=== PATIENT | male | born 1935 | race Caucasian/White ===

== ENCOUNTER → 2017-02-19 | Outpatient (CLI) | payer OTHER ==
[~2017-02-19] MED LIST: GLC5 PO; LOSA1TAB38 PO; NIFE60TA57 PO
[2017-02-19 12:21] LABS: BASO % 0.2 %; BASO ABS # 0.01 K/uL (0-0.2); COMPLETE YES; HEMATOCRIT 38.2 % (42-52); IG% 0.2 %; LYMPH % 19.1 %; LYMPH ABS # 0.81 K/uL (1.2-3.4); MEAN CELL VOLUME 94.6 fL (80-100); MEAN CORPUSCULAR HEMOGLOBIN 31.9 pg (25-34); MEAN CORPUSCULAR HGB CONC 33.8 g/dl (32-36); MEAN PLATELET VOLUME 9.3 fL (7.4-10.4); NEUT % 67.5 %; PLATELET COUNT 217 K/uL (130-400); RED BLOOD COUNT 4.04 M/uL (4.7-6.1); WHITE BLOOD COUNT 4.23 K/uL (4.8-10.8)
[2017-02-19 12:53] LABS: CALCIUM 8.3 mg/dl (8.5-10.1)
[2017-02-19 13:12] LABS: ALB/GLOB RATIO 0.9 (0.9-2); ALKALINE PHOSPHATASE 102 U/L (45-117); ALT/SGPT 30 U/L (12-78); AST/SGOT 19 U/L (15-37); BLOOD UREA NITROGEN 27 mg/dl (7-18); BUN/CREATININE RATIO 17.7 (10-20); CARBON DIOXIDE 24 mmol/L (21-32); CHLORIDE 108 mmol/L (98-107); CHOLESTEROL 204 mg/dl (0-200); CHOLESTEROL/HDL RATIO 4.3; GLUCOSE 99 mg/dl (70-99); HDL CHOLESTEROL 48 mg/dl; LDL CHOLESTEROL CALCULATED 127 mg/dl; SODIUM 143 mmol/L (136-145); TRIGLYCERIDES 147 mg/dl (0-150); VERY LOW DENSITY LIPOPROT CALC 29 mg/dl
[2017-02-19 13:26] LABS: ESTIMATED AVERAGE GLUCOSE 137 mg/dl; HA1C FLAG Normal (Normal)
[2017-02-19 13:38] LABS: RATIO 763.2 mcg/mg (0-30.0)
== END | disposition home or self-care (01) ==
LOC: C.LABBFT 07:37
PROVIDERS: ATTEND Internal Medicine
DX: E11.29 Type 2 diabetes mellitus with other diabetic kidney complication (principal)

== ENCOUNTER → 2017-04-09 | Outpatient (CLI) | payer OTHER ==
[2017-04-09 12:34] LABS: URINE APPEARANCE CLOUDY (CLEAR); URINE BILIRUBIN NEG (NEG); URINE COLOR YELLOW; URINE EPITHELIAL CELL AUTO 0-5 /lpf (0-5); URINE NITRITE POS (NEG); URINE SPECIFIC GRAVITY 1.022 (1.000-1.030); UROBILINOGEN NEG (NEG)
[2017-04-09 12:51] LABS: MANUAL MICROSCOPIC REQUIRED? NO; REVIEW REQ? NO
== END | disposition home or self-care (01) ==
LOC: C.LABBFT 09:28
PROVIDERS: ATTEND Physician Assistant Medical
DX: R31.9 Hematuria, unspecified (principal)

== ENCOUNTER → 2017-08-12 | Outpatient (CLI) | payer OTHER ==
[2017-08-12 12:26] LABS: HEMATOCRIT 36.4 % (42-52); MEAN CELL VOLUME 94.1 fL (80-100); MEAN CORPUSCULAR HEMOGLOBIN 33.1 pg (25-34); MEAN CORPUSCULAR HGB CONC 35.2 g/dl (32-36); MEAN PLATELET VOLUME 9.2 fL (7.4-10.4); PLATELET COUNT 252 K/uL (130-400); RED BLOOD COUNT 3.87 M/uL (4.7-6.1); WHITE BLOOD COUNT 5.23 K/uL (4.8-10.8)
[2017-08-12 13:09] LABS: ALT/SGPT 35 U/L (12-78); AST/SGOT 20 U/L (15-37); BLOOD UREA NITROGEN 26 mg/dl (7-18); BUN/CREATININE RATIO 15.6 (10-20); CALCIUM 8.4 mg/dl (8.5-10.1); CARBON DIOXIDE 25 mmol/L (21-32); CHLORIDE 104 mmol/L (98-107); CREATININE 1.65 mg/dl (0.60-1.40); GLUCOSE 126 mg/dl (70-99); POTASSIUM 4.1 mmol/L (3.5-5.1); SODIUM 135 mmol/L (136-145)
[2017-08-12 13:11] LABS: ESTIMATED AVERAGE GLUCOSE 143 mg/dl; HA1C FLAG Normal (Normal)
[2017-08-12 13:15] LABS: ALB/GLOB RATIO 0.7 (0.9-2); ALKALINE PHOSPHATASE 96 U/L (45-117); CHOLESTEROL 194 mg/dl (0-200); CHOLESTEROL/HDL RATIO 4.4; HDL CHOLESTEROL 44 mg/dl; LDL CHOLESTEROL CALCULATED 127 mg/dl; TRIGLYCERIDES 117 mg/dl (0-150); VERY LOW DENSITY LIPOPROT CALC 23 mg/dl
== END | disposition home or self-care (01) ==
LOC: C.LABBFT 10:06
PROVIDERS: ATTEND Internal Medicine
DX: E11.29 Type 2 diabetes mellitus with other diabetic kidney complication (principal)

== ENCOUNTER → 2017-08-24 | Outpatient (CLI) | payer OTHER ==
--- NOTE | 2017-08-24 16:04 | DIAGNOSTIC IMAGING REPORT ---
KUB CLINICAL HISTORY: Constipation. COMPARISON STUDY: CT of the abdomen and pelvis October 27, 2015. FINDINGS: Note is made of cholecystectomy clips. The bowel gas pattern is normal. There is a moderate amount of stool within the colon and rectum. Brachytherapy seeds projecting over the prostate gland are noted. 8 mm calcification within the left abdomen corresponds to a cortical calcification within the left kidney shown on prior CT of October 27, 2015. IMPRESSION: 1. No evidence for a bowel obstruction. 2. Moderate amount of stool within the colon and rectum. Electronically signed by: Nathan Pino M.D. 08/24/2017 4:02 PM Dictated Date/Time: 08/24/2017 4:01 PM
== END | disposition home or self-care (01) ==
LOC: C.RAD1850 15:42
PROVIDERS: ATTEND Internal Medicine
DX: K59.00 Constipation, unspecified (principal)

== ENCOUNTER → 2017-09-04 | Outpatient (CLI) | payer OTHER ==
--- NOTE | 2017-09-04 16:00 | DIAGNOSTIC IMAGING REPORT ---
KUB HISTORY: K59.00 Constipation [id number] COMPARISON: KUB 08/24/2017. FINDINGS: No dilated loops of bowel to suggest an obstruction. Moderate amount well-formed stool seen within the proximal colon, sigmoid colon, and rectum. Multiple radiation seeds seen within the prostate gland. Vascular calcifications are noted. Stable 8 mm cortical calcification within the left kidney. No renal or ureteral calculi. Cholecystectomy clips seen within the right upper quadrant. The lung bases are clear. No pneumoperitoneum or pneumatosis. IMPRESSION: 1. Moderate well-formed stool seen within the colon and rectum, unchanged. 2. No evidence for bowel obstruction. Electronically signed by: Luis Sketlon M.D. 09/04/2017 3:58 PM Dictated Date/Time: 09/04/2017 3:56 PM
== END | disposition home or self-care (01) ==
LOC: C.RAD1850 15:45
PROVIDERS: ATTEND Internal Medicine
DX: K59.00 Constipation, unspecified (principal)

== ENCOUNTER 2019-01-29 08:07 | Inpatient (IN) ==
[2019-01-29] MEDS ORDERED: ACETAMINOPHEN 500 MG TAB PO STA (08:27)
[2019-01-29] MEDS ORDERED: ALBUTEROL 0.083% NEBU SOLN 3 ML VIAL NEB STA (08:27)
[2019-01-29] MEDS ORDERED: HYDROmorphone INJ 0.5 MG/0.5 ML SYR IV PRN (08:27)
[2019-01-29] MEDS ORDERED: ONDANSETRON INJ 2 MG/ML 2 ML VIAL IV STA (08:27)
[2019-01-29 08:47] LABS: Basophils # (auto) 0.01 K/uL (0-0.2); Basophils % (auto) 0.1 %; Eosinophils % (auto) 1.5 %; Hemoglobin 11.1 g/dL (14.0-18.0); Immature Granulocytes # (auto) 0.01 K/uL (0.00-0.02); Immature Granulocytes % (auto) 0.1 %; Lymphocytes % (auto) 19.3 %; Mean Corpuscular Hgb Conc 35.8 g/dL (32-36); Mean Corpuscular Volume 91.2 fL (80-100); Mean Platelet Volume 8.8 fL (7.4-10.4); Monocytes # (auto) 0.57 K/uL (0.11-0.59); Monocytes % (auto) 8.5 %; Neutrophils # (auto) 4.74 K/uL (1.4-6.5); Neutrophils % (auto) 70.5 %; Platelet Count 256 K/uL (130-400); RDW Coefficient of Variation 14.3 % (11.5-14.5); RDW Standard Deviation 47.6 fL (36.4-46.3); White Blood Count 6.73 K/uL (4.8-10.8)
[2019-01-29 09:07] LABS: Alanine Aminotransferase 17 U/L (12-78); Albumin Level 3.2 gm/dl (3.4-5.0); Aspartate Aminotransferase 17 U/L (15-37); BUN Creatinine Ratio 12.9 (10-20); Blood Urea Nitrogen 26 mg/dl (7-18); Calcium 8.5 mg/dl (8.5-10.1); Carbon Dioxide 22 mmol/L (21-32); Chloride 111 mmol/L (98-107); Est GFR (African American) 34.8; Glucose 129 mg/dl (70-99); Potassium 3.7 mmol/L (3.5-5.1); Sodium 143 mmol/L (136-145)
[2019-01-29] MEDS ORDERED: SODIUM CHLORIDE 0.9% 1000ML 500 ML IV ONE (09:09)
[2019-01-29 09:33] LABS: Albumin Globulin Ratio 0.9 (0.9-2); Alkaline Phosphatase 114 U/L (45-117); Bilirubin,Total 1.1 mg/dl (0.2-1); Creatine Kinase 133 U/L (39-308); Creatine Kinase MB 4.2 ng/ml (0.5-3.6); Globulin 3.6 gm/dl (2.5-4.0); Total Protein 6.8 gm/dl (6.4-8.2); Troponin I 0.299 ng/ml (0-0.045)
--- NOTE | 2019-01-29 09:43 | CT Scan Report ---
CT chest wo con CT DOSE: 383.34 mGy.cm HISTORY: Dyspnea Pt c/o left sided chest pain TECHNIQUE: Multiaxial CT images of the chest were performed without contrast. A dose lowering techni que was utilized adhering to the principles of ALARA. COMPARISON: None. FINDINGS: Large bilateral pleural effusions. Prominent pulmonary vasculature consistent with congesti ve heart failure. Atherosclerotic change thoracic aorta. IMPRESSION: 1. Large bilateral pleural effusions. 2. Congestive heart failure. The above report was generated using voice recognition software. It may contain grammatical, syntax or spelling errors. Electronically signed by: Abhishek Cherry M.D. 01/29/2019 9:41 AM
[2019-01-29] MEDS ORDERED: Heparin IV Standard *NO* Bolus IV ONE ×2 (10:33→13:30)
[2019-01-29] MEDS ORDERED: ASPIRIN CHEW 324 MG PO STA (10:33)
[2019-01-29] MEDS ORDERED: FUROSEMIDE 40 MG/4 ML VIAL IV STA (10:48)
[2019-01-29 11:06] LABS: INR 1.1 (0.9-1.1); Partial Thromboplastin Ratio 1.1; Partial Thromboplastin Time 29.9 Seconds (21.0-31.0); Prothrombin Time 11.4 Seconds (9.0-12.0)
[2019-01-29] MEDS ORDERED: HEPARIN 25000 UNIT/500 ML D5W IV ONE (11:12)
[2019-01-29] MEDS ORDERED: FUROSEMIDE 40 MG/4 ML VIAL IV ONE (11:12)
--- NOTE | 2019-01-29 11:13 | XRay Report ---
XR chest 2V routine CLINICAL HISTORY: chf dyspnea COMPARISON STUDY: 01/13/2019 FINDINGS: Unchanging findings of congestive failure versus pulmonary edema. No evidence for pneumotho rax. IMPRESSION: Findings of pulmonary edema and congestive failure unchanged from the prior study of 01/13 The above report was generated using voice recognition software. It may contain grammatical, syntax or spelling errors. Electronically signed by: Ahbishek Cherry M.D. 01/29/2019 11:11 AM
--- NOTE | 2019-01-29 11:39 | History & Physical Report ---
Date of Service January 29, 2019 Assessment & Plan (1) CHF (congestive heart failure): Acute. Systolic versus diastolic. Cardiac echo is pending. Cardiology consultation pending. Hannah catheter has been placed. Administer IV Lasix 40 mg every 12 hours. Present on Admission?: Yes (2) Acute respiratory failure with hypoxemia: Supplemental oxygen to maintain saturation greater than 90%. Treat CHF Present on Admission?: Yes (3) Pleural effusion: Bilateral pleural effusions noted on chest CT scan. PA and left lateral c hest x-ray pending. Consult thoracic surgery. Present on Admission?: Yes (4) Acute NH anterior wall first episode care: Troponin is elevated and EKG is acutely abnormal. Cardiac echo pending. Cardiology consultation has been ordered. He is currently is on a heparin infusion. Metoprolol tartrate has been increased to twice daily dosing. Nifedipine has been discontinued. Continue aspirin therapy. Present on Admission?: Yes (5) DM2 (diabetes mellitus, type 2): Treated with diet at home. Signed scale and some coverage ordered. (6) CKD (chronic kidney disease) stage 3, GFR 30-59 ml/min: Current creatinine 2.0. Will monitor daily renal function in the face of diuresis. History of Present Illness Chief Complaint: Shortness of breath Primary Care Provider: Rk Perera MD 83-year-old male who presents with a several day history of worsening shortness of breath and wheezing. He has a nonproductive cough. Interestingly, he denies chest discomfort back pain or diaphoresis. He is diabetic and his presentation may be altered. Chest CT scan was done on admission due to a recent fall and rib fracture. He has evidence of congestive heart failure with bilateral pleural effusions and is hypoxic on room air. Troponin is also elevated at 0.299 and EKG reveals evidence of recent anterior wall injury as compared to pre vious EKGs. He is a DNR patient and has chronic kidney kidney disease with creatinine 2.0. The ED physician contacted cardiology who recommended initiation of heparin infusion which has been started. Nifedipine will be discontinued and metoprolol tartrate will be increased to twice daily dosing. Hannah catheter has been placed and IV Lasix has been administered. The ED physician already contacted thoracic surgery, Dr. Cintron, who will be consulted but I do not think this is a parapneumonic effusion and the patient does not appear to be ill enough to have an empyema. I do not believe tho racentesis is necessary at this point. Hopefully the pleural effusions will subside with diuresis. Cardiac echo has been ordered. Family is at the bedside and is aware of the situation. He does have acute hypoxic respiratory failure at this point. ABGs are pending. BNP is 17,800. Allergies Allergy/AdvReac Type Severity Reaction Status Date / Time No Known Allergies Allergy Unverified 01/13/19 08:32 Home Medications Home Medications Medication Instructions Recorded Confirmed Type citalopram 20 mg PO DAILY 01/13/19 01/29/19 History metoprolol tartrate 12.5 mg PO DAILY 01/13/19 01/29/19 History nifedipine 60 mg PO DAILY 01/13/19 01/29/19 History oxycodone 5 mg PO Q4H PRN #15 tab 01/13/19 01/29/19 Rx Past Med/Surg History Medical History Type 2 DM with CKD and hypertension (Acute) Temporomandibular joint dysfunction syndrome (Acute) Suicidal ideation (Acute) Stye (Acute) Stroke syndrome (Acute) Psoriasis (Acute) Pityriasis rosea (Acute) Need for influenza vaccination (Acute) Microalbuminuria (Acute) Malignant neoplasm of prostate (Acute) Lumbar radiculopathy (Acute) Hypertension (Acute) Hyperlipidemia (Acute) Gait disorder (Acute) External hemorrhoids (Acute) Depression (Acute) Dementia (Acute) Controlled type 2 diabetes with renal manifestation (Acute) Cognitive changes (Acute) Bradycardia (Acute) Benign colonic polyp (Acute) Anemia (Acute) Accidental medication overdose (Acute) Abnormal weight loss (Acute) Frequent falls Diabetes mellitus (Chronic) Anxiety (Chronic) Surgical History H/O vasectomy (Chronic) Hx of cholecystectomy (Chronic) Family History Other Family history non-contributory Social History Preferred Language: [place]i Communication Ability: Effective 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 Beliefs That Will Affect Care: None marital status: Current Living Situation: Spouse current occupational status: retired Other Information That Helps Us Care for You: No Feels Safe at Home: Yes Safety Concerns: Feels Safe At This Time Smoking Status: Never smoker Do You Dip or Chew Tobacco: No Second Hand Exposure: No Tobacco Cessation Education Requested by Patient: No Hx Alcohol Use: No Hx Substance Use: No Review of Systems Review of Systems: All systems reviewed & are unremarkable except as noted in HPI & below Respiratory: + cough, + dyspnea, + dyspnea on exertion and + wheezing; no hemoptysis and no sputum production Physical Exam Constitutional: WD/WN, vitals as above average body habitus; no acute distress and not ill appearing Eyes: PERRL, conjunctivae normal, anicteric sclerae ENMT: external ear and nose normal, oropharynx normal Neck: trachea midline, no thyromegaly Respiratory: normal respiratory effort and + cough; no retractions and does not use accessory muscles Midline rhonchi. Dullness at both bases. Bilateral and expiratory wheezes Cardiovascular: Rate/Rhythm: regular rhythm Heart Sounds: normal S1 and normal S2 Borderline tachycardia. Grade 2/6 harsh systolic murmur at the left sternal border Gastrointestinal (Abdomen): normal bowel sounds, soft, nontender, no hepatosplenomegaly Musculoskeletal: 1+ pitting edema bilateral lower extremities below the knees which the family states is unchanged and chronic. Skin: no rashes, warm and dry Neurologic: CN's II-XI intact bilaterally and moves all extremities; no focal motor deficits Results & Data Vital Signs (Past 12 Hours) Vital Signs Temp Pulse Pulse Resp BP BP Pulse Ox 01/29/19 11:16 85 19 97/58 L 95 01/29/19 11:06 79 19 94 01/29/19 10:30 89 21 97 01/29/19 10:00 92 H 17 113/67 95 01/29/19 09:41 100 H 21 115/78 91 01/29/19 09:38 101 H 22 01/29/19 09:01 97 H 22 128/81 93 01/29/19 09:00 95 H 23 01/29/19 08:56 85 L 01/29/19 08:50 94 H 24 147/126 H 99 01/29/19 08:46 93 H 27 H 147/126 H 100 01/29/19 08:41 97 H 20 94 01/29/19 08:31 96 H 25 H 92 01/29/19 08:27 96 01/29/19 08:11 36.5 C 96 H 20 140/75 96 Laboratory Results 01/29/19 08:25 01/29/19 08:25 (1) CHF (congestive heart failure) Heart failure chronicity: unspecified Heart failure type: unspecified Qualif ied Code(s): I50.9 - Heart failure, unspecified
[2019-01-29 11:55] LABS: Appearance Urine Clear (Clear); Bilirubin Urine Negative (Negative); Blood Urine Trace (Negative); Color Urine Yellow; Glucose Urine UA Negative (Negative); Ketones Urine Negative (Negative); Leukocyte Esterase Urine Negative (Negative); Nitrite Urine Negative (Negative); Protein Urine 2+ (Negative); Specific Gravity Urine 1.023 (1.000-1.030); Urobilinogen Urine Negative (Negative)
[2019-01-29] MEDS ORDERED: ONDANSETRON INJ 2 MG/ML 2 ML VIAL IV PRN (12:03)
[2019-01-29] MEDS ORDERED: ALUMINUM/MAGNESIUM SUSP 30 ML UDC PO PRN (12:03)
[2019-01-29] MEDS ORDERED: OXYCODONE HCL IR 5 MG TAB (IMMEDIATE RELEASE) PO PRN (12:03)
[2019-01-29] MEDS ORDERED: NITROGLYCERIN SL 0.4 MG/TAB TAB SL PRN (12:03)
--- NOTE | 2019-01-29 12:13 | Emergency Department Note ---
Entered by Emmie Ram acting as a scribe for History of Present Illness General Chief complaint: Illness Stated complaint: FEVER, COUGH, WHEEZING Time Seen by Provider: 01/29/19 08:16 Source: patient History of Present Illness Onset (ago): week(s) 5 Location: chest Pain Consistency: + other (persistent) Maximum Pain Intensity: 5 Quality: + other (cough) Relieved By: not by medication (2 courses of antibiotics) Exacerbated By: + other (breathing) Associated symptoms: + chest pain (pain in broken left rib with breathing) and + shortness of breath The patient is a 83 year old male that is presenting to the Emergency Room with complaints of a persistent cough after he broke a rib on his left side 4-5 weeks ago. The patient reports that his cough is exacerbated by breathing in deeply. He notes pain in his rib cage secondary to coughing and breathing. He states that he has finished two courses of antibiotics for a possible pneumonia without any relief in his symptoms. The patient notes that his symptoms appear to be worsening. He states that he is short of breath but notes that he does not need breathing treatments at his baseline. He denies any other chest pain. Home Medications Home Medications Medication Instructions Recorded Confirmed Type citalopram 20 mg PO DAILY 01/13/19 01/29/19 History metoprolol tartrate 12.5 mg PO DAILY 01/13/19 01/29/19 History nifedipine 60 mg PO DAILY 01/13/19 01/29/19 History oxycodone 5 mg PO Q4H PRN #15 tab 01/13/19 01/29/19 Rx Allergies Allergy/AdvReac Type Severity Reaction Status Date / Time No Known Allergies Allergy Unverified 01/13/19 08:32 Past Med/Surg History Medical History CKD (chronic kidney disease) stage 3, GFR 30-59 ml/min (Chronic) DM2 (diabetes mellitus, type 2) (Chronic) Acute [place] anterior wall first episode care (Acute) Acute respiratory failure with hypoxemia (Acute) CHF (congestive heart failure) (Acute) Pleural effusion (Acute) Type 2 DM with CKD and hypertension (Acute) Temporomandibular joint dysfunction syndrome (Acute) Suicidal ideation (Acute) Stye (Acute) Stroke syndrome (Acute) Psoriasis (Acute) Pityriasis rosea (Acute) Need for influenza vaccination (Acute) Microalbuminuria (Acute) Malignant neoplasm of prostate (Acute) Lumbar radiculopathy (Acute) Hypertension (Acute) Hyperlipidemia (Acute) Gait disorder (Acute) External hemorrhoids (Acute) Depression (Acute) Dementia (Acute) Controlled type 2 diabetes with renal manifestation (Acute) Cognitive changes (Acute) Bradycardia (Acute) Benign colonic polyp (Acute) Anemia (Acute) Accidental medication overdose (Acute) Abnormal weight loss (Acute) Frequent falls Diabetes mellitus (Chronic) Anxiety (Chronic) Surgical History H/O vasectomy (Chronic) Hx of cholecystectomy (Chronic) Family History Other Family history non-contributory Social History Preferred Language: Yoruba Communication Ability: Effective 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 and A total of 10 systems reviewed and were otherwise negative Physical Exam Vital Signs Vital Signs - 24 hr 01/29/19 08:11 01/29/19 08:27 01/29/19 08:31 Temperature 36.5 C Temperature Source Oral Sepsis Recent Fever Within 48 Hours No Sepsis Action Taken by Nursing No Action Required Pulse Rate 96 H 96 H Pulse Rate [Right Apical] Pulse Rate from SpO2 Sensor 97 H Respiratory Rate 20 25 H Respiratory Effort / Characteristics Respiratory Depth Respiratory Pattern Blood Pressure 140/75 Blood Pressure [Left Arm] Blood Pressure Mean 96 Blood Pressure Mean [Left Arm] Pulse Oximetry 96 96 92 Oxygen Delivery Method Room Air Oxygen Flow Rate 01/29/19 08:41 01/29/19 08:46 01/29/19 08:50 Temperature Temperature Source Sepsis Recent Fever Within 48 Hours Sepsis Action Taken by Nursing Pulse Rate 93 H Pulse Rate [Right Apical] 97 H 94 H Pulse Rate from SpO2 Sensor 93 H Respiratory Rate 20 27 H 24 Respiratory Effort / Characteristics Non-Labored Spontaneous Non-Labored Respiratory Depth Normal Respiratory Pattern Blood Pressure 147/126 H Blood Pressure [Left Arm] 147/126 H Blood Pressure Mean 133 Blood Pressure Mean [Left Arm] 133 Pulse Oximetry 94 100 99 Oxygen Delivery Method Room Air Room Air Oxygen Flow Rate 01/29/19 08:56 01/29/19 09:00 01/29/19 09:01 Temperature Temperature Source Sepsis Recent Fever Within 48 Hours Sepsis Action Taken by Nursing Pulse Rate 95 H 97 H Pulse Rate [Right Apical] Pulse Rate from SpO2 Sensor 95 H 97 H Respiratory Rate 23 22 Respiratory Effort / Characteristics Respiratory Depth Respiratory Pattern Blood Pressure 128/81 Blood Pressure [Left Arm] Blood Pressure Mean 96 Blood Pressure Mean [Left Arm] Pulse Oximetry 85 L 93 Oxygen Delivery Method Nasal Cannula Oxygen Flow Rate 0 01/29/19 09:38 01/29/19 09:41 01/29/19 10:00 Temperature Temperature Source Sepsis Recent Fever Within 48 Hours Sepsis Action Taken by Nursing Pulse Rate 101 H 100 H 92 H Pulse Rate [Right Apical] Pulse Rate from SpO2 Sensor 100 H 92 H Respiratory Rate 22 21 17 Respiratory Effort / Characteristics Respiratory Depth Respiratory Pattern Blood Pressure 115/78 113/67 Blood Pressure [Left Arm] Blood Pressure Mean 90 82 Blood Pressure Mean [Left Arm] Pulse Oximetry 91 95 Oxygen Delivery Method Oxygen Flow Rate 01/29/19 10:28 01/29/19 10:30 01/29/19 11:06 Temperature Temperature Source Sepsis Recent Fever Within 48 Hours Sepsis Action Taken by Nursing Pulse Rate 89 79 Pulse Rate [Right Apical] Pulse Rate from SpO2 Sensor 89 78 Respiratory Rate 21 19 Respiratory Effort / Characteristics Spontaneous Accessory Muscle Use SOB on Exertion Respiratory Depth Normal Respiratory Pattern Regular Blood Pressure Blood Pressure [Left Arm] Blood Pressure Mean Blood Pressure Mean [Left Arm] Pulse Oximetry 97 94 Oxygen Delivery Method Room Air Oxygen Flow Rate GENERAL: Awake, alert, well-appearing, in no acute distress HENT: Normocephalic, atraumatic. Oropharynx unremarkable. EYES: Normal conjunctiva. Sclera non-icteric. NECK: Supple. No nuchal rigidity. FROM. No JVD. RESPIRATORY: Diminished breath sounds on left side. CARDIAC: Regular rate, normal rhythm. Extremities warm and well perfused. Pulses equal. ABDOMEN: Soft, non-distended. No tenderness to palpation. No rebound or guarding. No masses. RECTAL: Deferred. MUSCULOSKELETAL: Tender to 8th rib area. The back is symmetrical on inspection without obvious abnormality. There is no CVA tenderness to palpation. No joint edema. LOWER EXTREMITIES: Calves are equal size bilaterally and non-tender. No edema. No discoloration. NEURO: Normal sensorium. No sensory or motor deficits noted. SKIN: No rash or jaundice noted. Course 0817:The patient was evaluated in room B09. A complete history and physical examination was performed. 0940: I discussed the patient�s case with DIMAS Leonard, who will evaluate the patient for further management and care. 0948: I discussed the patient�s case with NIRANJAN Cordova, who recommended the patient be evaluated for further management. He stated that he will see the patient in the morning and that a CT with contrast is not recommended at this time. 0951: Upon reevaluation, the patient is resting comfortably. I discussed laboratory and radiographic results with the patient. He verbalized agreement of the treatment plan. The patient will be evaluated for further management and care. 1020: I discussed the patient's case with NIRANJAN Ariza, who recommended that cardiology be consulted. 1030: I discussed the [facility]'s [facility] who stated the patient is eligible for anti-coagulation. Consultations Consultation #1: I discussed the patient�s case with DIMAS Leonard, who will evaluate the patient for further management and care. Time: 09:40 Consultation #2: I discussed the patient�s case with NIRANJAN Cordova, who recommended the patient be evaluated for further management. He stated that a CT with contrast is not recommended at this time and that he will see the patient in the morning. Time: 09:48 Consultation #3: I discussed the patient's case with NIRANJAN Ariza, who recommended that Cardiology be consulted. Time: 10:20 Additional Consultation(s): 1030: I discussed the patient's case with Dr. Razo, Cardiology [facility], who stated that the patient is eligible for anti- coagulation. Administered Medications Hydromorphone HCl (Dilaudid) 0.25 mg IV Q15M PRN PRN Reason: Pain Stop: 02/12/19 08:26 Last Admin: 01/29/19 08:46 Dose: 0.25 mg Documented by: [id number] Discontinued Medications Acetaminophen (Tylenol) 1,000 mg PO NOW STA Stop: 01/29/19 08:28 Last Admin: 01/29/19 08:46 Dose: 1,000 mg Documented by: [id number] Albuterol (Ventolin 0.083% 2.5mg/3ml) 2.5 mg NEB NOW STA Stop: 01/29/19 08:28 Last Admin: 01/29/19 08:39 Dose: 2.5 mg Documented by: [id number] Aspirin (Aspirin) 324 mg PO NOW STA Stop: 01/29/19 10:34 Last Admin: 01/29/19 10:47 Dose: 324 mg Documented by: [id number] Furosemide (Lasix) Confirm Administered Dose 40 mg IV .STK-MED ONE Stop: 01/29/19 11:13 Last Admin: 01/29/19 11:17 Dose: 40 mg Documented by: [id number] Heparin Sodium/Dextrose () 1 ea IV ONE ONE; Protocol Stop: 01/29/19 10:34 Last Admin: 01/29/19 11:26 Dose: Not Given Documented by: [id number] Heparin Sodium/Dextrose (Heparin Sodium/Dextrose) Confirm Administered Dose 25,000 units IV .STK-MED ONE Stop: 01/29/19 11:13 Last Admin: 01/29/19 11:18 Dose: 1,250 units Documented by: [id number] Cosigned by: [id number] Sodium Chloride (Nss 1000ml) 500 mls @ 999 mls/hr IV .Q31M ONE Stop: 01/29/19 09:39 Last Infusion: 01/29/19 10:03 Dose: 0 mls/hr Documented by: [id number] Admin: 01/29/19 09:18 Dose: 999 mls/hr Documented by: [id number] Ondansetron HCl (Zofran) 4 mg IV NOW STA Stop: 01/29/19 08:28 Last Admin: 01/29/19 08:46 Dose: 4 mg Documented by: [id number] Medical Decision Making Differential Diagnosis Differential diagnosis: Etiologies such as shingles, musculoskeletal pain, pericarditis, myocarditis, cardiac ischemia, pericardial tamponade, pneumonia, pneumothorax, pleural effusion, hemothorax, pleurisy, aortic pathology, pulmonary embolism, intra- abdominal process, as well as others were considered. Medical Records Attestation: I reviewed the patient's medical records. Home Medications Current Medication List: was personally reviewed by me Laboratory Data Attestation: I reviewed the patient's lab results. Result diagrams: 01/29/19 08:25 01/29/19 08:25 Lab Results 01/29/19 01/29/19 01/29/19 Range/Units 08:25 08:25 08:25 WBC 6.73 (4.8-10.8) K/uL RBC 3.40 L (4.7-6.1) M/uL Hgb 11.1 L (14.0-18.0) g/dL Hct 31.0 L (42-52) % MCV 91.2 (80-100) fL MCH 32.6 (25-34) pg MCHC 35.8 (32-36) g/dL RDW Std Deviation 47.6 H (36.4-46.3) fL RDW Coeff of Fabián 14.3 (11.5-14.5) % Plt Count 256 (130-400) K/uL MPV 8.8 (7.4-10.4) fL Immature Gran % (Auto) 0.1 % Neut % (Auto) 70.5 % Lymph % (Auto) 19.3 % [place] % (Auto) 8.5 % Eos % (Auto) 1.5 % Baso % (Auto) 0.1 % Immature Gran # (Auto) 0.01 (0.00-0.02) K/uL Neut # (Auto) 4.74 (1.4-6.5) K/uL Lymph # (Auto) 1.30 (1.2-3.4) K/uL [place] # (Auto) 0.57 (0.11-0.59) K/uL Eos # (Auto) 0.10 (0-0.5) K/uL Baso # (Auto) 0.01 (0-0.2) K/uL PT (9.0-12.0) Seconds INR (0.9-1.1) APTT (21.0-31.0) Seconds PTT Ratio Sodium 143 (136-145) mmol/L Potassium 3.7 (3.5-5.1) mmol/L Chloride 111 H (98-107) mmol/L Carbon Dioxide 22 (21-32) mmol/L Anion Gap 9.0 (3-11) BUN 26 H (7-18) mg/dl Creatinine 2.01 H (0.6-1.4) mg/dl Est Cr Clr Drug Dosing Not Reportable Est GFR ( Amer) 34.8 Est GFR (Non-Af Amer) 30.0 BUN/Creatinine Ratio 12.9 (10-20) Glucose 129 H (70-99) mg/dl Calcium 8.5 (8.5-10.1) mg/dl Total Bilirubin 1.1 H (0.2-1) mg/dl AST 17 (15-37) U/L ALT 17 (12-78) U/L Alkaline Phosphatase 114 (45-117) U/L Total Creatine Kinase 133 (39-308) U/L CK-MB (CK-2) 4.2 H (0.5-3.6) ng/ml CK/CKMB % Calc 3.2 H (0-3.0) Troponin I 0.299 H* (0-0.045) ng/ml NT-Pro-B Natriuret Pep 35512 H (0-1800) pg/ml Total Protein 6.8 (6.4-8.2) gm/dl Albumin 3.2 L (3.4-5.0) gm/dl Globulin 3.6 (2.5-4.0) gm/dl Albumin/Globulin Ratio 0.9 (0.9-2) Lipase 140 (73-393) U/L 01/29/19 Range/Units 10:46 WBC (4.8-10.8) K/uL RBC (4.7-6.1) M/uL Hgb (14.0-18.0) g/dL Hct (42-52) % MCV (80-100) fL MCH (25-34) pg MCHC (32-36) g/dL RDW Std Deviation (36.4-46.3) fL RDW Coeff of Fabián (11.5-14.5) % Plt Count (130-400) K/uL MPV (7.4-10.4) fL Immature Gran % (Auto) % Neut % (Auto) % Lymph % (Auto) % [place] % (Auto) % Eos % (Auto) % Baso % (Auto) % Immature Gran # (Auto) (0.00-0.02) K/uL Neut # (Auto) (1.4-6.5) K/uL Lymph # (Auto) (1.2-3.4) K/uL [place] # (Auto) (0.11-0.59) K/uL Eos # (Auto) (0-0.5) K/uL Baso # (Auto) (0-0.2) K/uL PT 11.4 (9.0-12.0) Seconds INR 1.1 (0.9-1.1) APTT 29.9 (21.0-31.0) Seconds PTT Ratio 1.1 Sodium (136-145) mmol/L Potassium (3.5-5.1) mmol/L Chloride (98-107) mmol/L Carbon Dioxide (21-32) mmol/L Anion Gap (3-11) BUN (7-18) mg/dl Creatinine (0.6-1.4) mg/dl Est Cr Clr Drug Dosing Est GFR ( Amer) Est GFR (Non-Af Amer) BUN/Creatinine Ratio (10-20) Glucose (70-99) mg/dl Calcium (8.5-10.1) mg/dl Total Bilirubin (0.2-1) mg/dl AST (15-37) U/L ALT (12-78) U/L Alkaline Phosphatase (45-117) U/L Total Creatine Kinase (39-308) U/L CK-MB (CK-2) (0.5-3.6) ng/ml CK/CKMB % Calc (0-3.0) Troponin I (0-0.045) ng/ml NT-Pro-B Natriuret Pep (0-1800) pg/ml Total Protein (6.4-8.2) gm/dl Albumin (3.4-5.0) gm/dl Globulin (2.5-4.0) gm/dl Albumin/Globulin Ratio (0.9-2) Lipase (73-393) U/L Imaging Data Radiologist's Impression: Radiology results as stated below per my review and the radiologist's interpretation: CT chest wo con CT DOSE: 383.34 mGy.cm HISTORY: Dyspnea Pt c/o left sided chest pain TECHNIQUE: Multiaxial CT images of the chest were performed without contrast. A dose lowering technique was utilized adhering to the principles of ALARA. COMPARISON: None. FINDINGS: Large bilateral pleural effusions. Prominent pulmonary vasculature consistent with congestive heart failure. Atherosclerotic change thoracic aorta. IMPRESSION: 1. Large bilateral pleural effusions. 2. Congestive heart failure. The above report was generated using voice recognition software. It may contain grammatical, syntax or spelling errors. Electronically signed by: Abhishek Cherry M.D. 01/29/2019 9:41 AM ECG Data Attestation: I personally reviewed and interpreted this ECG as follows: Indication: SOB/dyspnea Rate (beats per minute): 100 Rhythm: normal sinus Findings: + T-wave inversion and + prolonged QT Comparison ECG Date: from (05/14/2016) Change: the following changes noted (T-wave inveresion, prolonged QT) Blood Pressure Blood Pressure Findings: Normal blood pressure MDM Narrative This is an 83-year-old male who presents emergency department complaining of left-sided chest pain. The patient's EKG is significantly changed from previous EKGs and his troponin is also elevated. I did discuss the case with both cardiology as well as thoracic surgery due to the patient's very large pleural effusions. Thoracic surgery is asking that the patient be admitted to the hospitalist service and he will see the patient tomorrow. We did agree to anticoagulate the patient therefore he was placed on a heparin drip. Coagulation profile was also obtained. Patient was given aspirin here in the emergency department. Impression & Plan Hypoxia, CHF (congestive heart failure), Pleural effusion Critical Care Time I have personally spent greater than 30 minutes of critical care time in the direct management of this patient. This includes bedside care, interpretation of diagnostic studies, and testing, discussion with consultants, patient, and family members, and other required patient management activities. This 30 minutes is in excess of all separately billable procedures. Discharge Plan Visit Data Chief Complaint: Illness Stated Complaint: FEVER, COUGH, WHEEZING ED Provider: Quinn Sue Discharge Problem: Hypoxia, CHF (congestive heart failure), Pleural effusion Patient Disposition: Being Evaluated by Hospitalist Discharge Instructions Interventions: ED Discharge Assessment Last Done: 01/29/19 11:45 Discharge Problem: CHF (congestive heart failure) Qualifiers: Heart failure type: unspecified Heart failure chronicity: unspecified Qualified Code(s): I50.9 - Heart failure, unspecified The scribe's documentation has been prepared under my direction and personally r eviewed by me in its entirety. I confirm that the note above accurately reflects all work, treatment, procedures, and medical decision making performed by me.
[2019-01-29] MEDS: METOPROLOL TARTRATE 25 MG TAB PO SCH ×2 (12:21→20:45)
[2019-01-29 12:39] LABS: HCO3 ABG 20 mmol/L (19-24); Oxygen Saturation ABG 95.7 % (90-95); PCO2 ABG 33 mmHg (35-46); PO2 ABG 81 mm/Hg (80-95)
[2019-01-29 12:40] LABS: Allen Test Pos (Pos)
[2019-01-29 12:41] LABS: Amorphous Sediment Urine Present (None Prsent)
[2019-01-29 12:42] LABS: Bacteria Urine 1+ (Negative); RBC Urine 0-4 /hpf (0-4)
[2019-01-29] MEDS: INSULIN ASPART 100 UNITS/ML 3 ML PEN SC SCH ×3 (13:20→20:47)
[2019-01-29] MEDS: Heparin Adult STANDARD Wt-Based Dextrose 5% 25,000 units/500 mL IV SCH (13:32)
[2019-01-29] MEDS: cefTRIAXone SODIUM 1,000 MG in DEXTROSE 5% 50 ML IV SCH (14:01)
--- NOTE | 2019-01-29 19:04 | Cardiology Consultation ---
Date of Consultation January 29, 2019 Assessment & Plan (1) Acute RI anterior wall first episode care: Given the absence of any ongoing chest pain and the subacute nature of his symptoms (past 1-2 months), suspect that he had infarct sometime ago (weeks to months) and has been struggling with chronic congestive heart failure which culminated in his decompensation today with resultant hypoxemia. Since his CK is only 133 his symptoms are subacute, his rising troponin today is most likely a reflection of supply/demand mismatch from his decompensation, rather than an acute event. Given the patient's significant underlying renal disease, in the absence of evidence for an acute event with active ischemia would avoid cardiac catheterization due to the risk of contrast nephropathy resulting in acute renal failure/need for dialysis. Medical management includes IV heparin (for now, until becomes apparent that this is clearly a subacute event), aspirin, diuresis with IV furosemide, beta- blockade (may switch to carvedilol at some point), and initiation of a statin prior to discharge. He may not be an BRITTANY-inhibitor candidate given his renal insufficiency. Cardiology will continue to follow up to assist in titrating his diuretic and monitoring for any ischemic symptoms. (2) Acute respiratory failure with hypoxemia: Secondary to congestive heart failure from apparent subacute anteroapical infarct. (3) CHF (congestive heart failure): Agree with IV diuresis, he is symptomatic early improving quickly but still appears mildly hypervolemic. Follow clinical status, weight, and renal function and titrate diuretic accordingly. (4) Pleural effusion: Secondary to CHF. (5) Type 2 DM with CKD and hypertension: History of Present Illness Attending Physician: Julio Cesar Lemus MD History of Present Illness 83-year-old man with no prior cardiac history is had persistent dyspnea with a cough worse at night over the past month or so. He was treated for presumed pneumonia, but in retrospect a chest x-ray in December did show pleural effusions and some pulmonary vascular congestion. He was admitted today with evidence of congestive heart failure after presenting with dyspnea at rest and hypoxemia. He is responding well to intravenous diuretic, he feels much better currently. Of note, he denies having chest pain at any point. His ECG suggests a recent anterior infarct, cardiac enzymes are elevated and increasing, and his echocardiogram shows a large anteroapical area of akinesis consistent with an infarct. At the time of my evaluation, he was sitting comfortably and had no specific complaints. He was not dyspneic at rest on supplemental oxygen and had no chest pain. Allergies Allergy/AdvReac Type Severity Reaction Status Date / Time No Known Allergies Allergy Unverified 01/13/19 08:32 Home Medications Home Medications Medication Instructions Recorded Confirmed Type citalopram 20 mg PO DAILY 01/13/19 01/29/19 History metoprolol tartrate 12.5 mg PO DAILY 01/13/19 01/29/19 History nifedipine 60 mg PO DAILY 01/13/19 01/29/19 History oxycodone 5 mg PO Q4H PRN #15 tab 01/13/19 01/29/19 Rx Patient History Medical History CKD (chronic kidney disease) stage 3, GFR 30-59 ml/min (Chronic) DM2 (diabetes mellitus, type 2) (Chronic) Acute RI anterior wall first episode care (Acute) Acute respiratory failure with hypoxemia (Acute) CHF (congestive heart failure) (Acute) Pleural effusion (Acute) Type 2 DM with CKD and hypertension (Acute) Temporomandibular joint dysfunction syndrome Suicidal ideation Stye Stroke syndrome Psoriasis Pityriasis rosea Need for influenza vaccination Microalbuminuria Malignant neoplasm of prostate Lumbar radiculopathy Hypertension Hyperlipidemia Gait disorder External hemorrhoids Depression Dementia Controlled type 2 diabetes with renal manifestation Cognitive changes Bradycardia Benign colonic polyp Anemia Accidental medication overdose Abnormal weight loss Frequent falls Diabetes mellitus (Chronic) Anxiety (Chronic) Surgical History H/O vasectomy (Resolved) Hx of cholecystectomy (Resolved) Family History Family history non-contributory Social History Preferred Language: Occitan Communication Ability: Effective Operational Trainer Required: No Beliefs That Will Affect Care: None marital status: Current Living Situation: Spouse current occupational status: retired Other Information That Helps Us Care for You: No Feels Safe at Home: Yes Safety Concerns: Feels Safe At This Time Smoking Status: Never smoker Do You Dip or Chew Tobacco: No Second Hand Exposure: No Tobacco Cessation Education Requested by Patient: No Hx Alcohol Use: No Hx Substance Use: No Review of Systems Constitutional: as per Subjective / HPI, + fatigue and + weakness; no fever and no chills Eyes: no problem reported Ear, Nose, Mouth, Throat: no problem reported Respiratory: as per Subjective / HPI Cardiovascular: as per Subjective / HPI Gastrointestinal: no abdominal pain Musculoskeletal: no problem reported Neurologic: no localized weakness Physical Exam Physical Exam: No distress. Appears fatigued but not acutely distressed. Skin: No unusual lesions or ecchymosis. HEENT: Unremarkable. Neck: Jugular venous pulse [address] the angle of the jaw at 90�, no carotid bruits. Lungs: Dullness at both bases with basilar crackles, apices clear. No wheezing. No accessory muscle use. Cardiac: Regular rhythm with 3/6 right upper sternal border systolic ejection murmur into the carotids and left sternal border/apex, aortic closure sound minimally reduced. No diastolic murmur or distinct gallop. Abdomen: Benign. Extremities: Nontender with 1+ pretibial edema. Intact peripheral pulses. Neurologic: Somewhat subdued affect, nonfocal Results & Data Vital Signs (Past 12 Hours) Vital Signs Temp Pulse Pulse Pulse Resp BP BP 01/29/19 15:19 78 01/29/19 15:05 36.4 C L 85 18 104/59 L 01/29/19 12:03 82 01/29/19 12:00 36.5 C 85 21 99/62 L 01/29/19 11:16 85 19 97/58 L 01/29/19 11:06 79 19 01/29/19 10:30 89 21 01/29/19 10:00 92 H 17 113/67 01/29/19 09:41 100 H 21 115/78 01/29/19 09:38 101 H 22 01/29/19 09:01 97 H 22 128/81 01/29/19 09:00 95 H 23 01/29/19 08:56 01/29/19 08:50 94 H 24 147/126 H 01/29/19 08:46 93 H 27 H 147/126 H 01/29/19 08:41 97 H 20 01/29/19 08:31 96 H 25 H 01/29/19 08:27 01/29/19 08:11 36.5 C 96 H 20 140/75 Pulse Ox 01/29/19 15:19 01/29/19 15:05 94 01/29/19 12:03 01/29/19 12:00 94 01/29/19 11:16 95 01/29/19 11:06 94 01/29/19 10:30 97 01/29/19 10:00 95 01/29/19 09:41 91 01/29/19 09:38 01/29/19 09:01 93 01/29/19 09:00 01/29/19 08:56 85 L 01/29/19 08:50 99 01/29/19 08:46 100 01/29/19 08:41 94 01/29/19 08:31 92 01/29/19 08:27 96 01/29/19 08:11 96 Laboratory Results Laboratory Tests 01/29/19 01/29/19 01/29/19 08:25 08:25 08:25 WBC 6.73 Hgb 11.1 L Plt Count 256 BUN 26 H Creatinine 2.01 H Total Creatine Kinase 133 CK-MB (CK-2) 4.2 H Troponin I 0.299 H* NT-Pro-B Natriuret Pep 57861 H Albumin 3.2 L 01/29/19 16:01 WBC Hgb Plt Count BUN Creatinine Total Creatine Kinase CK-MB (CK-2) Troponin I 0.986 H* NT-Pro-B Natriuret Pep Albumin Diagnostic Findings Echocardiogram showed normal LV size with large area of anteroapical akinesis and reduced systolic function (EF 30-35%). Mild aortic stenosis with mild mitral regurgitation and moderate tricuspid regurgitation with moderate pulmonary hypertension. (1) CHF (congestive heart failure) Heart failure chronicity: unspecified Heart failure type: unspecified Qualified Code(s): I50.9 - Heart failure, unspecified
[2019-01-29 20:04] LABS: Partial Thromboplastin Ratio 3.4
[2019-01-29 20:41] LABS: Partial Thromboplastin Time 93.4 Seconds (21.0-31.0)
[2019-01-29] MEDS: FUROSEMIDE 40 MG in SYRINGE 0 ML IV SCH (20:46)
[2019-01-30 04:19] LABS: Basophils # (auto) 0.01 K/uL (0-0.2); Basophils % (auto) 0.2 %; Eosinophils # (auto) 0.17 K/uL (0-0.5); Eosinophils % (auto) 3.6 %; Hematocrit (blood only) 24.2 % (42-52); Hemoglobin 8.5 g/dL (14.0-18.0); Immature Granulocytes # (auto) 0.01 K/uL (0.00-0.02); Immature Granulocytes % (auto) 0.2 %; Lymphocytes # (auto) 1.15 K/uL (1.2-3.4); Lymphocytes % (auto) 24.7 %; Mean Corpuscular Hgb Conc 35.1 g/dL (32-36); Mean Corpuscular Volume 91.7 fL (80-100); Mean Platelet Volume 8.8 fL (7.4-10.4); Monocytes # (auto) 0.39 K/uL (0.11-0.59); Monocytes % (auto) 8.4 %; Neutrophils # (auto) 2.93 K/uL (1.4-6.5); Neutrophils % (auto) 62.9 %; Platelet Count 171 K/uL (130-400); RDW Coefficient of Variation 14.4 % (11.5-14.5); RDW Standard Deviation 48.5 fL (36.4-46.3); Red Blood Count 2.64 M/uL (4.7-6.1); White Blood Count 4.66 K/uL (4.8-10.8)
[2019-01-30 04:39] LABS: Partial Thromboplastin Ratio 4.2
[2019-01-30 04:48] LABS: BUN Creatinine Ratio 14.4 (10-20); Calcium 7.5 mg/dl (8.5-10.1); Est GFR (African American) 25.1; Est GFR (Non-African American) 21.7
[2019-01-30 04:56] LABS: Partial Thromboplastin Time 114.2 Seconds (21.0-31.0)
[2019-01-30] MEDS: INSULIN ASPART 100 UNITS/ML 3 ML PEN SC SCH ×3 (08:23→17:29)
[2019-01-30] MEDS: METOPROLOL TARTRATE 25 MG TAB PO SCH ×2 (08:23→20:33)
[2019-01-30] MEDS: CITALOPRAM 20 MG TAB PO SCH (08:23)
[2019-01-30] MEDS: ASPIRIN 81 MG ECTAB PO SCH (08:23)
[2019-01-30] MEDS: FUROSEMIDE 40 MG in SYRINGE 0 ML IV SCH ×2 (08:25→20:33)
[2019-01-30] MEDS: cefTRIAXone SODIUM 1,000 MG in DEXTROSE 5% 50 ML IV SCH (12:34)
--- NOTE | 2019-01-30 12:43 | Cardiology Progress Note ---
Date of Service January 30, 2019 Assessment & Plan (1) Acute PA anterior wall first episode care: Given the absence of any ongoing chest pain and the subacute nature of his symptoms (past 1-2 months), suspect that he had infarct sometime ago (weeks to months) and has been struggling with chronic congestive heart failure which culminated in his decompensation at the time of his admission. Since his CK is only 133 his symptoms are subacute, his rising troponin was most likely a reflection of supply/demand mismatch from his decompensation, rather than an acute event. His troponin curve did flatten out in his declining. Given the patient's significant underlying renal disease, in the absence of evidence for an acute event with active ischemia would avoid cardiac catheterization due to the risk of contrast nephropathy resulting in acute renal failure/need for dialysis. Medical management includes: IV heparin - in the absence of evidence for an acute event, could discontinue this after 48 hours, sooner if there is any evidence of GI or other bleeding (he has an unexplained 2.6 grams hemoglobin drop). aspirin - continue in the absence of evidence for active bleeding. furosemide - could switch to oral dosing, since he appears to be euvolemic now and is more azotemic yesterday. beta-blockade - on metoprolol, although he could be switched to carvedilol at some point his blood pressure is currently low normal to mildly hypotensive, so there is no need for additional afterload reduction. BRITTANY-inhibitor - assess role of BRITTANY-inhibitor (if any) once his renal function stabilizes. additional antiplatelet therapy - hold for now until the etiology of his hemoglobin dropped he comes apparent (he is already on IV heparin aspirin and his clinical scenario is more consistent with a subacute acute thrombotic event). Will continue to follow up to assist in titrating his diuretic and monitoring for any ischemic symptoms. (2) Acute respiratory failure with hypoxemia: Secondary to congestive heart failure from apparent subacute anteroapical infarct. (3) CHF (congestive heart failure): See above. Follow clinical status, weight, and renal function and titrate diuretic accordingly. (4) Pleural effusion: Secondary to CHF. (5) Type 2 DM with CKD and hypertension: Subjective 83-year-old man admitted 01/29/2019 with subacute congestive heart failure symptoms, found on echo to have a large area of anteroapical akinesis and an EF of 20-25 %. Uneventful night, no chest pain or palpitations. No orthopnea or PND. He was fatigued this morning but not dyspneic at rest (on supplemental oxygen). Review of Systems Constitutional: + fatigue Respiratory: no cough and no dyspnea Cardiovascular: as per Subjective / HPI Physical Exam Physical Exam: No distress. Appears fatigued but not acutely distressed. Skin: No unusual lesions or ecchymosis. HEENT: Unremarkable. Neck: Jugular venous pulse just above the clavicle at 90�, no carotid bruits. Lungs: Dullness at both bases with few basilar crackles, apices clear. No wheezing. No accessory muscle use. Cardiac: Regular rhythm with 3/6 right upper sternal border systolic ejection murmur into the carotids and left sternal border/apex, aortic closure sound minimally reduced. No diastolic murmur or distinct gallop. Abdomen: Benign. Extremities: Nontender with trace-1+ pretibial edema. Intact peripheral pulses. Neurologic: Somewhat subdued affect, nonfocal Results & Data Vital Signs (Past 12 Hours) Vital Signs Temp Pulse Pulse Resp BP Pulse Ox 01/30/19 12:01 36.6 C 74 20 103/61 98 01/30/19 07:23 83 01/30/19 07:07 37.0 C 89 18 114/68 94 01/30/19 03:20 36.7 C 88 16 107/68 95 Laboratory Results Laboratory Tests 01/29/19 01/29/19 01/30/19 08:25 16:01 00:10 WBC Hgb Plt Count BUN 26 H Creatinine 2.01 H Total Creatine Kinase 133 Troponin I 0.986 H* 1.050 H* 01/30/19 01/30/19 01/30/19 03:54 03:54 07:56 WBC 4.66 L Hgb 8.5 L Plt Count 171 BUN 38 H Creatinine 2.63 H D Total Creatine Kinase Troponin I 0.761 H* Diagnostic Findings Echocardiogram showed normal LV size with moderately reduced systolic function (EF 30-35 %) and a large area of anteroapical akinesis sparing only the basal segments. Mild aortic stenosis, mild mitral regurgitation, moderate tricuspid regurgitation with moderate pulmonary hypertension. (1) CHF (congestive heart failure) Heart failure chronicity: unspecified Heart failure type: unspecified Qualified Code(s): I50.9 - Heart failure, unspecified
[2019-01-30 13:18] LABS: Partial Thromboplastin Time 58.5 Seconds (21.0-31.0)
[2019-01-30 14:08] LABS: Partial Thromboplastin Ratio 2.2
[2019-01-30] MEDS: Heparin Adult STANDARD Wt-Based Dextrose 5% 25,000 units/500 mL IV SCH (14:09)
--- NOTE | 2019-01-30 15:41 | Family Medicine Progress Note ---
Date of Service January 30, 2019 Assessment & Plan (1) Acute PR anterior wall first episode care: 83-year-old male with past medical history of diet-controlled type 2 diabetes, CKD, history of stroke remote, prostate cancer in remission, gait disorder and frequent falls at home, depression and dementia who presented for left-sided chest pain after a fall and shortness of breath. Chest CT scan was done and admission due to the recent fall and rib fracture, showed evidence of congestive heart failure with bilateral pleural effusions and patient was hypoxic on room air. Troponin was elevated at 0.299 and EKG revealed evidence of recent anterior wall injury when compared to previous. Inverted T waves in leads V3 through V6. Heparin drip was begun. Nifedipine discontinued. Metoprolol tartrate increased to twice daily dosing. A Hannah was placed and Lasix was begun twice daily. Thoracic surgery was consulted due to effusions. BNP >17,000 elevated. Echo ordered and showed new wall motion abnormalities and decline in systolic function. #Bilateral pleural effusions / (HFrEF) CHF secondary to wall motion abnormalities secondary to acute silent PR -January 29 TTE (compared to10/2011) showed EF 30 to 35%, large area of anteroapical akinesis, pulmonary hypertension, valvular regurgitation more severe. -Patient is Lasix na�ve, has received 2 doses of IV Lasix with reasonable output and improvement in oxygenation. Is still net +1 L. Will receive 1 more this afternoon. Then to be reassessed daily for additional dosing. -Seen by thoracic surgery, appreciate assistance. Possible thoracentesis if diuresis is not effective. -I/Os, daily weights -For his PR, heparin drip was begun in the ED, cardiology consulted appreciate assistance--plan to continue for 48 hours. Monitor CBC and PTT. -Troponin x3, have peaked. -Two-point drop in hemoglobin today although patient not showing any obvious signs of bleeding. Possibly dilutional. Will follow. -Additional antiplatelet therapy will be held for now in light of drop in hemoglobin. Consider BRITTANY inhibitor once renal function stabilizes. -Nifedipine discontinued. Metoprolol tartrate to twice daily. Consider carvedilol. Continue aspirin. -Monitor on telemetry -Lipid profile and A1c pending. #Abnormal urinalysis -Begin empirically on ceftriaxone. Urine culture NGTD, DC ceftriaxone. -Blood cultures also negative. FEN/GI: Heart healthy diet, DM2 diet. DVT ppx: Heparin drip for 48 hours. CODE STATUS: DNR/DNI DISPO: Telemetry, likely for rehab on discharge. Pending PT OT. Case management. Other ongoing medical problems: DM2-diet controlled at home. ISS here. A1c pending. Dementia/remote history of CVA-reorientation, PT OT CKD-monitor BMP in setting of diuresis (2) CKD (chronic kidney disease) stage 3, GFR 30-59 ml/min: (3) DM2 (diabetes mellitus, type 2): (4) Acute respiratory failure with hypoxemia: (5) CHF (congestive heart failure): (6) Pleural effusion: (7) Hypertension: (8) Hyperlipidemia: (9) Gait disorder: (10) Dementia: (11) Cognitive changes: (12) Frequent falls: (13) Dementia: Supervising Physician Co-Signing Physician Notes Patient seen and examined with Dr. Demarco. Agree with history, exam findings, assessment and plan of care as outlined. 83 year old male with history of HTN, DM2, CKD, prostate cancer, chronic back pain, and depression admitted with dyspnea and wheezing found to have subacute anterior wall PR and in acute, decompensated CHF. Exam significant for bibasilar decreased breath sounds. On 2L NC. +systolic ejection murmur. 1+ pretibial edema. 1. CHF (congestive heart failure): Acute. Systolic versus diastolic. Echo with EF 30-35% and new anteroapical akinesis. CT with significant bilateral pulmonary effusions (See below). Hannah catheter has been placed. IV Lasix 40 mg BID. Putting out decent urine, but still in positive fluid balance at this point. 2. Acute respiratory failure with hypoxemia: Supplemental oxygen to maintain saturation greater than 90%. Treating CHF as above. 3. Pleural effusion: Bilateral pleural effusions noted on chest CT scan. PA and left lateral chest x-ray pending. Appreciate thoracic surgery assistance. Pending possible thoracentesis for tomorrow. 4. Acute PR anterior wall: Likely subacute infarction with concomitant supply/demand ischemia at this point. Troponin is elevated and EKG with t wave inversions (trop 0.299?0.986?1.050). Echo as above. Continue heparin gtt. Metoprolol tartrate has been increased to twice daily dosing. Nifedipine discontinued. Continue aspirin therapy. 5. DM2 (diabetes mellitus, type 2): Treated with diet at home. Signed scale and some coverage ordered. 6. CKD (chronic kidney disease) stage 3, GFR 30-59 ml/min: Current creatinine 2.63. Will monitor daily renal function in the face of diuresis. Can consider BRITTANY inhibitor or ARB both from a CKD standpoint as well as cardiac standpoint at a later date. 7. Anemia. Hgb on admission 11.1?8.5. No evidence of acute GI bleed. FOBT pending. If hgb trending down tomorrow, will dc heparin gtt. 8. Deconditioning. PT/OT. May require possible placement in the short term. Dispo: pending clinical improvement. Subjective Seen and examined at the bedside with Afsaneh present. Subjectively breathing is better. Denies any stooling since admission, and denies any bloody bowel movements. Hannah is draining clear yellow urine. Endorses dyspnea with activity. Is currently on 2 L. Tolerating p.o. Heparin drip running. Review of Systems Review of Systems: All systems reviewed & are unremarkable except as noted in HPI & below Physical Exam Physical Exam: Vitals noted as above and within normal limits . GENERAL: Awake, alert to person, place, and time, nontoxic-appearing, in no distress HENT: Normocephalic, atraumatic. Nasal cannula in place. Mucus membranes appear moist. EYES: Normal conjunctiva. Sclera non-icteric. EOMI. NECK: Supple. Full range of motion. RESPIRATORY: Slight crackles at the bases. Slightly increased work of breathing. CARDIAC: Regular rate, normal rhythm. Extremities warm and well perfused, 2+ radial pulses bilaterally; 2+ posterior tibialis pulses bilaterally. ABDOMEN: Soft, non-distended. No tenderness to palpation in all four quadrants. No rebound or guarding. No masses. Bowel sounds are normal. LOWER EXTREMITIES: Inspection of calves reveal equal size bilaterally. They are non-tender. 1+ edema up to the knees. No discoloration. NEURO: + Dementia. Sitting up in bed although slightly slanted to the side. SKIN: Rash not present. No jaundice noted. Significant lesions include significant bruising on left arm. PSYCH: Appropriate mood and affect. Cooperative. Exam as done by Lori Demarco MD, Monitor Car Operator. Results & Data Vital Signs (Past 12 Hours) Vital Signs Temp Pulse Pulse Resp BP Pulse Ox 01/30/19 12:01 36.6 C 74 20 103/61 98 01/30/19 07:23 83 01/30/19 07:07 37.0 C 89 18 114/68 94 Laboratory Results 01/30/19 01/30/19 01/30/19 Range/Units 11:42 07:56 07:04 WBC (4.8-10.8) K/uL RBC (4.7-6.1) M/uL Hgb (14.0-18.0) g/dL Hct (42-52) % MCV (80-100) fL MCH (25-34) pg MCHC (32-36) g/dL RDW Std Deviation (36.4-46.3) fL RDW Coeff of Fabián (11.5-14.5) % Plt Count (130-400) K/uL MPV (7.4-10.4) fL Immature Gran % (Auto) % Neut % (Auto) % Lymph % (Auto) % [place] % (Auto) % Eos % (Auto) % Baso % (Auto) % Immature Gran # (Auto) (0.00-0.02) K/uL Neut # (Auto) (1.4-6.5) K/uL Lymph # (Auto) (1.2-3.4) K/uL [place] # (Auto) (0.11-0.59) K/uL Eos # (Auto) (0-0.5) K/uL Baso # (Auto) (0-0.2) K/uL APTT 58.5 H* (21.0-31.0) Seconds PTT Ratio 2.2 Sodium (136-145) mmol/L Potassium (3.5-5.1) mmol/L Chloride (98-107) mmol/L Carbon Dioxide (21-32) mmol/L Anion Gap (3-11) BUN (7-18) mg/dl Creatinine (0.6-1.4) mg/dl Est Cr Clr Drug Dosing ml/min Est GFR ( Amer) Est GFR (Non-Af Amer) BUN/Creatinine Ratio (10-20) Glucose (70-99) mg/dl POC Glucose 97 (70-99) Calcium (8.5-10.1) mg/dl Troponin I 0.761 H* (0-0.045) ng/ml 01/30/19 01/30/19 01/30/19 Range/Units 03:54 03:54 03:54 WBC 4.66 L (4.8-10.8) K/uL RBC 2.64 L (4.7-6.1) M/uL Hgb 8.5 L (14.0-18.0) g/dL Hct 24.2 L (42-52) % MCV 91.7 (80-100) fL MCH 32.2 (25-34) pg MCHC 35.1 (32-36) g/dL RDW Std Deviation 48.5 H (36.4-46.3) fL RDW Coeff of Fabián 14.4 (11.5-14.5) % Plt Count 171 (130-400) K/uL MPV 8.8 (7.4-10.4) fL Immature Gran % (Auto) 0.2 % Neut % (Auto) 62.9 % Lymph % (Auto) 24.7 % [place] % (Auto) 8.4 % Eos % (Auto) 3.6 % Baso % (Auto) 0.2 % Immature Gran # (Auto) 0.01 (0.00-0.02) K/uL Neut # (Auto) 2.93 (1.4-6.5) K/uL Lymph # (Auto) 1.15 L (1.2-3.4) K/uL [place] # (Auto) 0.39 (0.11-0.59) K/uL Eos # (Auto) 0.17 (0-0.5) K/uL Baso # (Auto) 0.01 (0-0.2) K/uL APTT 114.2 H* (21.0-31.0) Seconds PTT Ratio 4.2 Sodium 137 (136-145) mmol/L Potassium 4.0 (3.5-5.1) mmol/L Chloride 107 (98-107) mmol/L Carbon Dioxide 24 (21-32) mmol/L Anion Gap 6.0 (3-11) BUN 38 H (7-18) mg/dl Creatinine 2.63 H D (0.6-1.4) mg/dl Est Cr Clr Drug Dosing 21.0 ml/min Est GFR ( Amer) 25.1 Est GFR (Non-Af Amer) 21.7 BUN/Creatinine Ratio 14.4 (10-20) Glucose 86 (70-99) mg/dl POC Glucose (70-99) Calcium 7.5 L (8.5-10.1) mg/dl Troponin I (0-0.045) ng/ml 01/30/19 01/29/19 01/29/19 Range/Units 00:10 20:07 19:21 WBC (4.8-10.8) K/uL RBC (4.7-6.1) M/uL Hgb (14.0-18.0) g/dL Hct (42-52) % MCV (80-100) fL MCH (25-34) pg MCHC (32-36) g/dL RDW Std Deviation (36.4-46.3) fL RDW Coeff of Fabáin (11.5-14.5) % Plt Count (130-400) K/uL MPV (7.4-10.4) fL Immature Gran % (Auto) % Neut % (Auto) % Lymph % (Auto) % [place] % (Auto) % Eos % (Auto) % Baso % (Auto) % Immature Gran # (Auto) (0.00-0.02) K/uL Neut # (Auto) (1.4-6.5) K/uL Lymph # (Auto) (1.2-3.4) K/uL [place] # (Auto) (0.11-0.59) K/uL Eos # (Auto) (0-0.5) K/uL Baso # (Auto) (0-0.2) K/uL APTT 93.4 H* (21.0-31.0) Seconds PTT Ratio 3.4 Sodium (136-145) mmol/L Potassium (3.5-5.1) mmol/L Chloride (98-107) mmol/L Carbon Dioxide (21-32) mmol/L Anion Gap (3-11) BUN (7-18) mg/dl Creatinine (0.6-1.4) mg/dl Est Cr Clr Drug Dosing ml/min Est GFR ( Amer) Est GFR (Non-Af Amer) BUN/Creatinine Ratio (10-20) Glucose (70-99) mg/dl POC Glucose 149 H (70-99) Calcium (8.5-10.1) mg/dl Troponin I 1.050 H* (0-0.045) ng/ml 01/29/19 Range/Units 16:01 WBC (4.8-10.8) K/uL RBC (4.7-6.1) M/uL Hgb (14.0-18.0) g/dL Hct (42-52) % MCV (80-100) fL MCH (25-34) pg MCHC (32-36) g/dL RDW Std Deviation (36.4-46.3) fL RDW Coeff of Fabián (11.5-14.5) % Plt Count (130-400) K/uL MPV (7.4-10.4) fL Immature Gran % (Auto) % Neut % (Auto) % Lymph % (Auto) % [place] % (Auto) % Eos % (Auto) % Baso % (Auto) % Immature Gran # (Auto) (0.00-0.02) K/uL Neut # (Auto) (1.4-6.5) K/uL Lymph # (Auto) (1.2-3.4) K/uL [place] # (Auto) (0.11-0.59) K/uL Eos # (Auto) (0-0.5) K/uL Baso # (Auto) (0-0.2) K/uL APTT (21.0-31.0) Seconds PTT Ratio Sodium (136-145) mmol/L Potassium (3.5-5.1) mmol/L Chloride (98-107) mmol/L Carbon Dioxide (21-32) mmol/L Anion Gap (3-11) BUN (7-18) mg/dl Creatinine (0.6-1.4) mg/dl Est Cr Clr Drug Dosing ml/min Est GFR ( Amer) Est GFR (Non-Af Amer) BUN/Creatinine Ratio (10-20) Glucose (70-99) mg/dl POC Glucose (70-99) Calcium (8.5-10.1) mg/dl Troponin I 0.986 H* (0-0.045) ng/ml Medications Administered Current Inpatient Medications Acetaminophen (Tylenol) 650 mg PO Q4H PRN PRN Reason: Pain or Fever Stop: 02/28/19 12:02 Al Hydrox/Mg Hydrox/Simethicone (Maalox) 15 ml PO Q4H PRN PRN Reason: Dyspepsia Stop: 02/28/19 12:02 Aspirin (Ecotrin Ectab) 81 mg PO QAM [facility] Stop: 03/01/19 08:59 Last Admin: 01/30/19 08:23 Dose: 81 mg Documented by: Citalopram Hydrobromide (Celexa) 20 mg PO DAILY [facility] Stop: 03/01/19 08:59 Last Admin: 01/30/19 08:23 Dose: 20 mg Documented by: Hydromorphone HCl (Dilaudid) 0.25 mg IV Q15M PRN PRN Reason: Pain Stop: 02/12/19 08:26 Last Admin: 01/29/19 08:46 Dose: 0.25 mg Documented by: Furosemide 40 mg/ Syringe 4 mls @ 4 mls/min IV Q12H [facility] Stop: 01/30/19 23:59 Last Admin: 01/30/19 08:25 Dose: 4 mls/min Documented by: Heparin Sodium/Dextrose (Heparin Sodium/Dextrose) 25,000 units in 500 mls @ 18 mls/hr IV .Q24H [facility]; Protocol Stop: 01/31/19 13:29 Last Titration: 01/30/19 15:22 Dose: 900 units/hr, 18 mls/hr Documented by: Insulin Aspart (Novolog Flexpen) 0 units SC ACHS [facility] Stop: 02/28/19 12:02 Last Admin: 01/30/19 11:58 Dose: Not Given Documented by: Metoprolol Tartrate (Lopressor) 12.5 mg PO BID [facility] Stop: 02/28/19 11:14 Last Admin: 01/30/19 08:23 Dose: 12.5 mg Documented by: Nitroglycerin (Nitrostat) 0.4 mg SL UD PRN PRN Reason: Chest Pain Stop: 02/28/19 12:02 Ondansetron HCl (Zofran) 4 mg IV Q6H PRN PRN Reason: Nausea Stop: 02/28/19 12:02 Oxycodone HCl (Roxicodone Immediate Rel) 5 mg PO Q4H PRN PRN Reason: pain Stop: 02/12/19 12:02 Resident Activity Tracking Resident Involvement: Resident Care Provided Care Provided: Adult Hospital Medicine (1) CHF (congestive heart failure) Heart failure chronicity: unspecified Heart failure type: unspecified Qualified Code(s): I50.9 - Heart failure, unspecified
--- NOTE | 2019-01-30 22:05 | Consultation Report ---
DATE OF CONSULTATION: 01/30/2019 REASON FOR CONSULTATION: Large bilateral pleural effusions. HISTORY OF PRESENT ILLNESS: Dominick Gutierrez is an 83-year-old lifetime nonsmoker, nondrinker, who appears to have acute congestive heart failure. He was admitted to [facility] yesterday. He had been seen in the ER a few days before with left chest pain after a fall. He attributed his problems to a fractured rib. In actuality, the patient has probably had an acute or subacute myocardial infarction. He is hypoxemic with large bilateral pleural effusions. I was asked to evaluate him from a thoracic surgery standpoint to see whether or not his pleural effusions should be tapped. The patient and his were interviewed at the bedside this morning. He feels that he is "a little bit better" than he was upon coming in. He really does not complain of shortness of breath at rest. His pulse oximetry during this evaluation was 94% on 2 liters. PAST MEDICAL HISTORY: 1. Probable acute myocardial infarction. 2. Diabetes mellitus. 3. Renal insufficiency. 4. Psoriasis. 5. Rosacea. 6. Lumbosacral degenerative disease. 7. Prostate carcinoma. 8. Hypertension. 9. Hyperlipidemia. 10. Symptoms of dementia. 11. Weight loss. 12. Hyperglycemia. PAST SURGICAL HISTORY: 1. Vasectomy. 2. Cholecystectomy. MEDICATIONS AT HOME: 1. Metoprolol. 2. Nifedipine. 3. Oxycodone. 4. Citalopram. ALLERGIES: No known drug allergies. SOCIAL HISTORY: The patient is from [facility]. He has never smoked cigarettes or used alcohol. He was a milk truck driver for many years. He lives at home with his . They have been together for 40 years. FAMILY MEDICAL HISTORY: The patient's mother in her 30s from "kidney failure" and he had a sister who in her 30s from kidney failure, which was "the same thing." His father at 59 and the patient states that he suffered from "diphtheria as a child which made him sick." The patient's 4 children and multiple grandchildren are healthy. REVIEW OF SYSTEMS: Most of this was supplied by his as the patient is a poor historian. He has increasing cough and dyspnea and has noted this for the last few weeks. He denies productive cough. He has had no fevers, no chills. He has had some weight loss, although it is unclear exactly how much. He has been fairly weak and has fallen twice in the last month. The patient and his state that he has had no visual or auditory issues. He has had no focal deficits, seizures or amaurosis fugax. He denies nausea, vomiting, or diarrhea. He does have some nocturia but has had no hematuria or dysuria. He did have peripheral edema, more in his left than his right which usually responds to Lasix. This is a chronic problem. He denies chest pain or palpitations other than the left-sided chest pain, which was a bit more posterior lateral and which he attributed to his fractured rib. PHYSICAL EXAMINATION: GENERAL: This is a 5-feet 8-inch, 150-pound male who is awake and alert, although obviously confused and he is quite slow to answer questions and does appear to be a bit confused. He was a bit unsettled about his exact location. Much of his history was given by his . VITAL SIGNS: Stable. On 2 liters, he has 94% saturation. His blood pressure is stable. His heart rate is in the 80s, which appears to be in a sinus rhythm. HEENT: His pupils are equally round and reactive. Sclerae are anicteric. He has no evidence of candidiasis and his tongue is midline. He has no nasolabial flattening. NECK: Supple. He does have some mild venous distention at 30 degrees. He has no carotid bruits, supraclavicular or cervical lymphadenopathy, or thyromegaly. LUNGS: He has decreased breath sounds in both bases, but no wheezing or rales. HEART: He has a regular rate and rhythm of his heart with a loud systolic ejection murmur. ABDOMEN: Soft, nontender. EXTREMITIES: He has very little in the way of edema now. He does have palpable dorsalis pedis pulses; however, he states that his edema has improved since he arrived here. He has no joint effusions. NEUROLOGIC: He is slow to answer questions, but does move all extremities to command. DATA: I reviewed his CT scan, he does have marked pleural effusions greater on the right than the left; however, clinically this does not appear to be affecting him much. ASSESSMENT AND PLAN: Bilateral pleural effusions in the setting of probable acute congestive heart failure. His echocardiogram shows an EF of about 30% to 35%. I am going to observe him and check a chest x-ray tomorrow. I did explain to the patient and his that a thoracentesis could be offered, but I feel that we are probably dealing with congestive heart failure and I am hopeful that he will respond to diuresis. A thoracentesis could improve his hypoxemia, however. We will see how he looks tomorrow. AVRIL
[2019-01-31] MEDS: INSULIN ASPART 100 UNITS/ML 3 ML PEN SC SCH ×5 (00:09→20:15)
--- NOTE | 2019-01-31 07:07 | XRay Report ---
XR chest 1V portable CLINICAL HISTORY: pleural effusion fusion COMPARISON STUDY: 01/29/2019 FINDINGS: Slight increase in cardiac size. Bilateral pleural effusions slightly increased in volume i n the left. Findings of pulmonary edema and congestive failure minimally increased in prominence. IMPRESSION: Slight progression of the patient's congestive failure/pulmonary edema. Slight increase in volume of a left effusion. The above report was generated using voice recognition software. It may contain grammatical, syntax or spelling errors. Electronically signed by: Abhishek Cherry M.D. 01/31/2019 7:06 AM
[2019-01-31 07:08] LABS: Basophils # (auto) 0.01 K/uL (0-0.2); Basophils % (auto) 0.2 %; Eosinophils # (auto) 0.19 K/uL (0-0.5); Eosinophils % (auto) 4.2 %; Hematocrit (blood only) 25.6 % (42-52); Hemoglobin 9.1 g/dL (14.0-18.0); Immature Granulocytes # (auto) 0.01 K/uL (0.00-0.02); Immature Granulocytes % (auto) 0.2 %; Lymphocytes # (auto) 1.09 K/uL (1.2-3.4); Lymphocytes % (auto) 23.9 %; Mean Corpuscular Hgb Conc 35.5 g/dL (32-36); Mean Corpuscular Volume 90.1 fL (80-100); Mean Platelet Volume 8.9 fL (7.4-10.4); Monocytes % (auto) 8.8 %; Neutrophils # (auto) 2.86 K/uL (1.4-6.5); Neutrophils % (auto) 62.7 %; Platelet Count 182 K/uL (130-400); RDW Coefficient of Variation 13.9 % (11.5-14.5); RDW Standard Deviation 46.3 fL (36.4-46.3); Red Blood Count 2.84 M/uL (4.7-6.1); White Blood Count 4.56 K/uL (4.8-10.8)
[2019-01-31 07:21] LABS: Estimated Average Glucose 131 mg/dl; Hemoglobin A1C 6.2 % (4.5-5.6)
[2019-01-31 07:34] LABS: Partial Thromboplastin Ratio 2.1
[2019-01-31 07:41] LABS: BUN Creatinine Ratio 15.2 (10-20); Calcium 7.6 mg/dl (8.5-10.1); Creatinine Clr Calc Pharmacy 17.9 ml/min; Est GFR (African American) 21.2; Est GFR (Non-African American) 18.3; Potassium 3.6 mmol/L (3.5-5.1)
[2019-01-31 07:59] LABS: Partial Thromboplastin Time 55.8 Seconds (21.0-31.0)
[2019-01-31] MEDS: CITALOPRAM 20 MG TAB PO SCH (08:26)
[2019-01-31] MEDS: METOPROLOL TARTRATE 25 MG TAB PO SCH ×2 (08:27→20:14)
[2019-01-31] MEDS: ASPIRIN 81 MG ECTAB PO SCH (08:27)
[2019-01-31] MEDS ORDERED: BUMETANIDE 3 MG in SYRINGE 0 ML IV ONE (08:30)
--- NOTE | 2019-01-31 09:55 | Progress Note ---
DATE: 01/31/2019 Mr. Gutierrez was seen today. He is still quite short of breath. I had a long talk with the patient and his . He has decreased breath sounds in both bases. His x-ray does not look much different, in fact he may have a bit more fluid. I discussed this case with Dr. Aguilar Razo from cardiology. We are going to stop his heparin. I am going to offer him a right thoracentesis tomorrow morning. We discussed risk and benefits with the patient and his and obtain permits. We will do this first thing in the morning.
[2019-01-31] MEDS: POTASSIUM CHLORIDE 10 MEQ TABCR PO SCH ×2 (10:03→20:14)
--- NOTE | 2019-01-31 10:47 | Cardiology Progress Note ---
Date of Service January 31, 2019 Assessment & Plan (1) CHF (congestive heart failure): Exam and chest x-ray today consistent with increasing congestive heart failure. Suspect his elevated creatinine is secondary to reduced cardiac output, certainly does not appear to be hypovolemic. Therefore, will administer higher dose IV diuretic to ensure reaching the necessary �threshold close clots to achieve prompt diuresis. Bumex 3 mg IV now. Will add potassium supplement prophylactically given the expected diuresis. If he fails to respond to diuretic, may need to consider dobutamine, but reluctant to do this in the context of possible recent infarct. (2) Acute [place] anterior wall first episode care: Given the patient's significant underlying renal disease, in the absence of evidence for an acute event with active ischemia would avoid cardiac cathete rization due to the risk of contrast nephropathy resulting in acute renal failure/need for dialysis. Medical management includes: IV heparin - will discontinue since there is not evidence for an acute thrombotic event and he will be undergoing thoracentesis for his pleural effusion. aspirin - continue in the absence of evidence for active bleeding. Diuresis-see above beta-blockade/afterload reduction - on metoprolol, since he is no longer hypotensive, could add Coreg 3.125 mg b.i.d. to his regimen and titrate upward. BRITTANY-inhibitor/ARB - contraindicated currently with his worsening renal function. He does have history of a cough on BRITTANY-inhibitor, therefore if his renal function stabilizes and he is felt to tolerate a drug of this class would use an ARB. additional antiplatelet therapy - hold for now given pending thoracentesis and absence of evidence for ongoing myocardial ischemia. Will continue to follow up to assist in titrating his diuretic and monitoring for any ischemic symptoms. (3) Acute respiratory failure with hypoxemia: Resolved. Secondary to congestive heart failure from apparent subacute anteroapical infarct. (4) Pleural effusion: Secondary to CHF. Thoracentesis by Dr. Cintron planned. (5) Type 2 DM with CKD and hypertension: Subjective 83-year-old man admitted 01/29/2019 with subacute congestive heart failure symptoms, found on echo to have a large area of anteroapical akinesis and an EF of 20-25 %. He slept poorly last night, noting some difficulty breathing with orthopnea and probable PND. He feels better this morning, but still notes dyspnea with minimal exertion. No chest pain at any time. Review of Systems Respiratory: + dyspnea and + dyspnea on exertion Cardiovascular: as per Subjective / HPI; no chest pain Gastrointestinal: no diarrhea/loose stools and no blood in stools Physical Exam Physical Exam: No distress, but appears fatigued. Skin: No unusual lesions or ecchymosis. HEENT: Unremarkable. Neck: Jugular venous pulse custodial to the angle of the jaw at 90�, no carotid bruits. Lungs: Dullness at both bases with bibasilar crackles, apices clear. No wheezing. No accessory muscle use. Cardiac: Regular rhythm with 3/6 right upper sternal border systolic ejection murmur into the carotids and left sternal border/apex, aortic closure sound minimally reduced. No diastolic murmur or distinct gallop. Abdomen: Benign. Extremities: Nontender with trace-1+ pretibial edema. Intact peripheral pulses. Neurologic: Somewhat subdued affect, limited insight in some difficulty with word finding, nonfocal Results & Data Vital Signs (Past 12 Hours) Vital Signs Temp Pulse Pulse Resp BP BP Pulse Ox 01/31/19 08:00 81 01/31/19 07:42 36.9 C 94 H 24 141/81 H 91 01/31/19 04:43 36.9 C 90 26 H 140/81 95 01/30/19 23:59 37.1 C 77 24 120/78 97 Laboratory Results Laboratory Tests 01/31/19 06:53 Potassium 3.6 Laboratory Tests 01/31/19 01/31/19 06:53 06:53 Hgb 9.1 L Hemoglobin A1c 6.2 H Laboratory Tests 01/30/19 01/31/19 03:54 06:53 BUN 38 H 46 H Creatinine 2.63 H D 3.03 H D Diagnostic Findings 01/31 CXR IMPRESSION: Slight progression of the patient's congestive failure/pulmonary edema. Slight increase in volume of a left effusion. (1) CHF (congestive heart failure) Heart failure chronicity: unspecified Heart failure type: unspecified Qualified Code(s): I50.9 - Heart failure, unspecified
[2019-01-31] MEDS: Heparin Adult STANDARD Wt-Based Dextrose 5% 25,000 units/500 mL IV SCH (10:53)
[2019-01-31 15:29] LABS: BUN Creatinine Ratio 13.7 (10-20); Calcium 7.4 mg/dl (8.5-10.1); Creatinine Clr Calc Pharmacy 16.2 ml/min; Est GFR (African American) 18.8; Est GFR (Non-African American) 16.2; Potassium 3.8 mmol/L (3.5-5.1)
--- NOTE | 2019-01-31 15:45 | Family Medicine Progress Note ---
Date of Service January 31, 2019 Assessment & Plan (1) Myocardial infarction: 83-year-old male was admitted on 29 Jan 2019 for several days of SOB and a recent fall with left-sided chest pain from left 8th rib fracture. Myocardial infarction: See related cardiology notes. Thought to be subacute (so stopped heparin) in setting of CHF. Avoiding cardiac cath due to risk of contrast nephropathy. TnI trending down. Medically managed with aspirin, Lasix/bumex, and metoprolol (increased to twice daily). Held home nifedipine. Has allergy to BRITTANY-I (cough). - Cardiology gave single dose of Bumex 3 mg today to help with diuresis. - Consider transition to coreg. Consider addition of entresto, ARB, and/or statin in near future. Acute respiratory failure with hypoxemia, Bilateral pleural effusions: Secondary to congestive heart failure and MA. Seen again on pCXR on 27May. Diuresis as above. Thoracic surgery consulted, planned right-sided thoracentesis tomorrow (28May). See related note. Heart failure with reduced EF: Admit BNP 17K. 25May TTE noted EF 30 to 35%, large area of anterior apical akinesis, pulmonary hypertension, and various valve disease. CKD stage III: Baseline Cr perhaps 1.9. Progressively worsening to present Cr 3.35. Continued elevated BUN. Not presently on scheduled diuretics. Continue to monitor kidneys and volume status. Acute on chronic anemia: Baseline perhaps Hb 12�s. As low as Hb 8.5 on 26May, improved to 9.1 without intervention. Continue to monitor. Abnormal urinalysis: Admit UA was dirty. Urine culture showed no growth. Was briefly on ceftriaxone. Ongoing medical issues: - Hypertension, hyperlipidemia: See MA medications as above. - Diabetes type 2: At home is diet controlled. [id number] HbA1c was 6.2. Here on insulin sliding scale. - Prostate cancer: Reportedly in remission. 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 No noted incontinence here, however. Since last colonoscopy was in his 70�s, unknown results but was told he �didn�t need another� and that he had hemorrhoids. - Depression, dementia: On Celexa. - PMH CVA, gait disorder, frequent falls. Code status: DNR. Diet: Heart healthy, carb count, low sodium 2 gm. DVT prophy: SCD�s. Held chemical prophy due to planned thoracentesis. PT/OT: Ordered. Disbo: Admitted to PCU telemetry. Case management consulted. Lives at home with . (2) Acute respiratory failure with hypoxemia: (3) Pleural effusion: (4) CHF (congestive heart failure): (5) CKD (chronic kidney disease) stage 3, GFR 30-59 ml/min: (6) Acute on chronic anemia: (7) Hypertension: (8) Hyperlipidemia: (9) DM2 (diabetes mellitus, type 2): (10) History of prostate cancer: (11) Stool incontinence: (12) Depression: (13) Dementia: (14) History of CVA (cerebrovascular accident): (15) Gait disorder: (16) Frequent falls: Supervising Physician Co-Signing Physician Notes I personally examined the patient and verified all reyes points of history and exam, discussed case, and agree with decision making with Dr Genao. Feeling okay overall. Breathing not yet good, but certainly not bad. Discussed with cardiology. Input appreciated. Vitals noted, in general he is awake and alert pleasant no distress. HEENT normocephalic atraumatic mucous membranes moist. Breathing unlabored no accessory muscle use good effort. Skin shows no rashes no pallor or icterus. Lungs are diminished bibasilar may be faint rales but not clearly so. Otherwise clear no rales rhonchi or wheezes elsewhere good effort. Acute systolic CHF�it appears most likely it is MA was a week or more ago and he presented with symptoms from CHF. Cardiology is ordered ongoing diuresis. Follow creatinine, follow clinically. Coronary artery disease�MA prior to admission. Med management secondary risk reduction. With creatinine being elevated there is certainly risk for contrast nephropathy, and given that his MA appears to be stabilized/completed, the benefit would likely be much more nebulous. Elevated creatinine�uncertain if this is a new baseline if it acute renal insufficiency superimposed on a baseline of stage III CKD. Continue to follow with diuresis. DVT prophylaxis�was on heparin drip. Will start subcu heparin after thoracentesis tomorrow. Subjective Found patient resting comfortably earlier this morning with his at bedside. His gives most of the recent history. Patient denies any acute concerns but when asked says he still feels a little short of breath. says last bowel movement was this past Saturday 25May AM which is a bit unusual for him since his stools are loose at baseline. She notes he has some blood with his stool on occasion due to hemorrhoids. Review of Systems Review of Systems: Per HPI as above. Physical Exam Physical Exam: General Appearance: Awake, alert & oriented, comfortable in general, NAD. CV: +S1S2 RRR, 3/6 systolic murmur. Positive JVD. Pulm: Slight crackles at bilateral bases. Mild increased work of breathing. On 2 L nasal cannula oxygen. Abdomen: +BS, soft, non-tender, non-distended. Hannah catheter in place. Extremities: No pedal edema or calf tenderness. Trace edema in bilateral shins. Some ecchymosis to left forearm. Neuro: No gross neuro deficits. Results & Data Vital Signs (Past 12 Hours) Vital Signs Temp Pulse Pulse Pulse Resp BP BP 01/31/19 15:39 36.4 C L 70 24 126/72 01/31/19 10:47 36.4 C L 65 21 136/75 01/31/19 08:00 81 01/31/19 07:42 36.9 C 94 H 24 141/81 H 01/31/19 04:43 36.9 C 90 26 H 140/81 Pulse Ox 01/31/19 15:39 96 01/31/19 10:47 92 01/31/19 08:00 01/31/19 07:42 91 01/31/19 04:43 95 Laboratory Results 01/31/19 01/31/19 01/31/19 Range/Units 16:09 15:00 11:33 WBC (4.8-10.8) K/uL RBC (4.7-6.1) M/uL Hgb (14.0-18.0) g/dL Hct (42-52) % MCV (80-100) fL MCH (25-34) pg MCHC (32-36) g/dL RDW Std Deviation (36.4-46.3) fL RDW Coeff of Fabián (11.5-14.5) % Plt Count (130-400) K/uL MPV (7.4-10.4) fL Immature Gran % (Auto) % Neut % (Auto) % Lymph % (Auto) % [place] % (Auto) % Eos % (Auto) % Baso % (Auto) % Immature Gran # (Auto) (0.00-0.02) K/uL Neut # (Auto) (1.4-6.5) K/uL Lymph # (Auto) (1.2-3.4) K/uL [place] # (Auto) (0.11-0.59) K/uL Eos # (Auto) (0-0.5) K/uL Baso # (Auto) (0-0.2) K/uL APTT (21.0-31.0) Seconds PTT Ratio Sodium 137 (136-145) mmol/L Potassium 3.8 (3.5-5.1) mmol/L Chloride 102 (98-107) mmol/L Carbon Dioxide 26 (21-32) mmol/L Anion Gap 9.0 (3-11) BUN 46 H (7-18) mg/dl Creatinine 3.35 H D (0.6-1.4) mg/dl Est Cr Clr Drug Dosing 16.2 ml/min Est GFR ( Amer) 18.8 Est GFR (Non-Af Amer) 16.2 BUN/Creatinine Ratio 13.7 (10-20) Glucose 134 H (70-99) mg/dl POC Glucose 158 H 130 H (70-99) Estimat Average Glucose mg/dl Hemoglobin A1c (4.5-5.6) % Calcium 7.4 L (8.5-10.1) mg/dl Triglycerides (0-150) mg/dl Cholesterol (0-200) mg/dl LDL Cholesterol, Calc mg/dl VLDL Cholesterol, Calc mg/dl HDL Cholesterol mg/dl Cholesterol/HDL Ratio 01/31/19 01/31/19 01/31/19 Range/Units 06:53 06:53 06:53 WBC (4.8-10.8) K/uL RBC (4.7-6.1) M/uL Hgb (14.0-18.0) g/dL Hct (42-52) % MCV (80-100) fL MCH (25-34) pg MCHC (32-36) g/dL RDW Std Deviation (36.4-46.3) fL RDW Coeff of Fabián (11.5-14.5) % Plt Count (130-400) K/uL MPV (7.4-10.4) fL Immature Gran % (Auto) % Neut % (Auto) % Lymph % (Auto) % [place] % (Auto) % Eos % (Auto) % Baso % (Auto) % Immature Gran # (Auto) (0.00-0.02) K/uL Neut # (Auto) (1.4-6.5) K/uL Lymph # (Auto) (1.2-3.4) K/uL [place] # (Auto) (0.11-0.59) K/uL Eos # (Auto) (0-0.5) K/uL Baso # (Auto) (0-0.2) K/uL APTT 55.8 H* (21.0-31.0) Seconds PTT Ratio 2.1 Sodium 136 (136-145) mmol/L Potassium 3.6 (3.5-5.1) mmol/L Chloride 103 (98-107) mmol/L Carbon Dioxide 23 (21-32) mmol/L Anion Gap 10.0 (3-11) BUN 46 H (7-18) mg/dl Creatinine 3.03 H D (0.6-1.4) mg/dl Est Cr Clr Drug Dosing 17.9 ml/min Est GFR ( Amer) 21.2 Est GFR (Non-Af Amer) 18.3 BUN/Creatinine Ratio 15.2 (10-20) Glucose 108 H (70-99) mg/dl POC Glucose (70-99) Estimat Average Glucose 131 mg/dl Hemoglobin A1c 6.2 H (4.5-5.6) % Calcium 7.6 L (8.5-10.1) mg/dl Triglycerides 107 (0-150) mg/dl Cholesterol 136 (0-200) mg/dl LDL Cholesterol, Calc 73 mg/dl VLDL Cholesterol, Calc 21 mg/dl HDL Cholesterol 42 mg/dl Cholesterol/HDL Ratio 3 01/31/ Range/Units 06:53 WBC 4.56 L (4.8-10.8) K/uL RBC 2.84 L (4.7-6.1) M/uL Hgb 9.1 L (14.0-18.0) g/dL Hct 25.6 L (42-52) % MCV 90.1 (80-100) fL MCH 32.0 (25-34) pg MCHC 35.5 (32-36) g/dL RDW Std Deviation 46.3 (36.4-46.3) fL RDW Coeff of Fabián 13.9 (11.5-14.5) % Plt Count 182 (130-400) K/uL MPV 8.9 (7.4-10.4) fL Immature Gran % (Auto) 0.2 % Neut % (Auto) 62.7 % Lymph % (Auto) 23.9 % [place] % (Auto) 8.8 % Eos % (Auto) 4.2 % Baso % (Auto) 0.2 % Immature Gran # (Auto) 0.01 (0.00-0.02) K/uL Neut # (Auto) 2.86 (1.4-6.5) K/uL Lymph # (Auto) 1.09 L (1.2-3.4) K/uL [place] # (Auto) 0.40 (0.11-0.59) K/uL Eos # (Auto) 0.19 (0-0.5) K/uL Baso # (Auto) 0.01 (0-0.2) K/uL APTT (21.0-31.0) Seconds PTT Ratio Sodium (136-145) mmol/L Potassium (3.5-5.1) mmol/L Chloride (98-107) mmol/L Carbon Dioxide (21-32) mmol/L Anion Gap (3-11) BUN (7-18) mg/dl Creatinine (0.6-1.4) mg/dl Est Cr Clr Drug Dosing ml/min Est GFR ( Amer) Est GFR (Non-Af Amer) BUN/Creatinine Ratio (10-20) Glucose (70-99) mg/dl POC Glucose (70-99) Estimat Average Glucose mg/dl Hemoglobin A1c (4.5-5.6) % Calcium (8.5-10.1) mg/dl Triglycerides (0-150) mg/dl Cholesterol (0-200) mg/dl LDL Cholesterol, Calc mg/dl VLDL Cholesterol, Calc mg/dl HDL Cholesterol mg/dl Cholesterol/HDL Ratio Medications Administered Current Inpatient Medications Acetaminophen (Tylenol) 650 mg PO Q4H PRN PRN Reason: Pain or Fever Stop: 02/28/19 12:02 Last Admin: 01/31/19 17:20 Dose: 650 mg Documented by: Al Hydrox/Mg Hydrox/Simethicone (Maalox) 15 ml PO Q4H PRN PRN Reason: Dyspepsia Stop: 02/28/19 12:02 Aspirin (Ecotrin Ectab) 81 mg PO QAM [facility] Stop: 03/01/19 08:59 Last Admin: 01/31/19 08:27 Dose: 81 mg Documented by: Citalopram Hydrobromide (Celexa) 20 mg PO DAILY [facility] Stop: 03/01/19 08:59 Last Admin: 01/31/19 08:26 Dose: 20 mg Documented by: Hydromorphone HCl (Dilaudid) 0.25 mg IV Q15M PRN PRN Reason: Pain Stop: 02/12/19 08:26 Last Admin: 01/29/19 08:46 Dose: 0.25 mg Documented by: Insulin Aspart (Novolog Flexpen) 0 units SC ACHS [facility] Stop: 02/28/19 12:02 Last Admin: 01/31/19 17:15 Dose: 5 units Documented by: Metoprolol Tartrate (Lopressor) 12.5 mg PO BID [facility] Stop: 02/28/19 11:14 Last Admin: 01/31/19 08:27 Dose: 12.5 mg Documented by: Nitroglycerin (Nitrostat) 0.4 mg SL UD PRN PRN Reason: Chest Pain Stop: 02/28/19 12:02 Ondansetron HCl (Zofran) 4 mg IV Q6H PRN PRN Reason: Nausea Stop: 02/28/19 12:02 Oxycodone HCl (Roxicodone Immediate Rel) 5 mg PO Q4H PRN PRN Reason: pain Stop: 02/12/19 12:02 Potassium Chloride (Klor-Con M10) 10 meq PO BID [facility] Stop: 03/02/19 08:59 Last Admin: 01/31/19 10:03 Dose: 10 meq Documented by: Resident Activity Tracking Resident Involvement: Resident Care Provided Care Provided: Adult Hospital Medicine (1) CHF (congestive heart failure) Heart failure chronicity: unspecified Heart failure type: unspecified Qualified Code(s): I50.9 - Heart failure, unspecified
[2019-01-31] MEDS: ACETAMINOPHEN 325 MG TAB PO PRN (17:20)
[2019-02-01 07:18] LABS: Basophils # (auto) 0.02 K/uL (0-0.2); Basophils % (auto) 0.4 %; Eosinophils # (auto) 0.17 K/uL (0-0.5); Eosinophils % (auto) 3.8 %; Hematocrit (blood only) 27.6 % (42-52); Hemoglobin 9.9 g/dL (14.0-18.0); Lymphocytes # (auto) 1.06 K/uL (1.2-3.4); Lymphocytes % (auto) 23.5 %; Mean Corpuscular Hgb Conc 35.9 g/dL (32-36); Mean Corpuscular Volume 90.5 fL (80-100); Mean Platelet Volume 8.7 fL (7.4-10.4); Monocytes % (auto) 11.1 %; Neutrophils # (auto) 2.77 K/uL (1.4-6.5); Neutrophils % (auto) 61.2 %; Platelet Count 193 K/uL (130-400); RDW Coefficient of Variation 14.1 % (11.5-14.5); RDW Standard Deviation 46.5 fL (36.4-46.3); Red Blood Count 3.05 M/uL (4.7-6.1); White Blood Count 4.52 K/uL (4.8-10.8)
[2019-02-01 07:28] LABS: Partial Thromboplastin Ratio 1.1; Partial Thromboplastin Time 28.6 Seconds (21.0-31.0)
[2019-02-01 07:43] LABS: iSTAT Arterial Blood Gas HCO3 23 meg/L (19-24); iSTAT Carbon Dioxide 23 mEq/l (24-31)
[2019-02-01 07:59] LABS: BUN Creatinine Ratio 17.3 (10-20); Calcium 8.2 mg/dl (8.5-10.1); Creatinine Clr Calc Pharmacy 18.7 ml/min; Est GFR (African American) 23.9; Est GFR (Non-African American) 20.6; Potassium 3.6 mmol/L (3.5-5.1)
--- NOTE | 2019-02-01 08:07 | XRay Report ---
XR chest 1V portable HISTORY: thoracentesis COMPARISON: Chest 02/01/2016. FINDINGS: No pneumothorax. [id number] left pleural effusion persists. Trace right pleural effu krishan has decreased in size. Bibasilar densities and mild congestive change has improved. The heart re roslyn borderline enlarged. IMPRESSION: 1. No pneumothorax. 2. Small to moderate left pleural effusion persists. 3. Improvement in the trace right pleural effusion and congestive change. Electronically signed by: Luis Skelton M.D. 02/01/2019 8:06 AM
[2019-02-01] MEDS: INSULIN ASPART 100 UNITS/ML 3 ML PEN SC SCH ×4 (08:17→20:29)
[2019-02-01] MEDS: CITALOPRAM 20 MG TAB PO SCH (08:18)
[2019-02-01] MEDS: METOPROLOL TARTRATE 25 MG TAB PO SCH (08:18)
[2019-02-01] MEDS: ASPIRIN 81 MG ECTAB PO SCH (08:19)
[2019-02-01] MEDS: POTASSIUM CHLORIDE 10 MEQ TABCR PO SCH ×2 (08:23→20:29)
[2019-02-01] MEDS ORDERED: CARVEDILOL 6.25 MG TAB PO SCH ×2 (09:00)
[2019-02-01] MEDS ORDERED: BUMETANIDE 1 MG TAB PO SCH (09:00)
[2019-02-01 09:01] LABS: LDH Pleural Fluid 73 U/L
[2019-02-01 09:02] LABS: Total Protein Pleural Fluid 1.5 g/dl
[2019-02-01 09:17] LABS: Appearance Pleural Fluid CLOUDY; Color Pleural Fluid AMBER; Mononuclear WBC Pleural 81.3 %; Polynuclear WBC Pleural 18.7 %; RBC Pleural Fluid (A) 16000 /uL; Source Pleural Fluid RIGHT LUNG; WBC Pleural Fluid (A) 165 /uL
--- NOTE | 2019-02-01 09:34 | Cardiology Progress Note ---
Date of Service February 01, 2019 Assessment & Plan (1) CHF (congestive heart failure): Appears clinically improved. Chest auscultation and neck veins suggest he is now euvolemic. Elevated creatinine improved with diuresis, suggesting this was in fact related to poor renal perfusion from reduced cardiac output rather than over-diuresis. Will initiate on bumetanide 2 mg p.o. daily, if his fluid balance is positive would increase to 3 mg daily. (2) Acute MD anterior wall first episode care: Given the patient's significant underlying renal disease, in the absence of evidence for an acute event with active ischemia would avoid cardiac catheterization due to the risk of contrast nephropathy resulting in acute renal failure/need for dialysis. No ischemic symptoms. Although initially hypotensive he is now mildly hypertensive, recommend afterload reduction by initiating carvedilol 6.25 mg b.i.d. (will aggressively titrate since he is an inpatient and there is a need to avoid recurrent heart failure). Not immediately an ARB candidate given his labile creatinine. Although his LDL is excellent (73), given evidence for coronary artery disease would initiate at least a low-dose statin. Continue aspirin, will not add additional anti-platelet agent at this time (thoracentesis plan). (3) Acute respiratory failure with hypoxemia: Resolved. Secondary to congestive heart failure from apparent subacute anteroapical infarct. (4) Pleural effusion: Secondary to CHF. Thoracentesis by Dr. Cintron planned. (5) Type 2 DM with CKD and hypertension: Subjective 83-year-old man admitted 01/29/2019 with subacute congestive heart failure symptoms, found on echo to have a large area of anteroapical akinesis and an EF of 20-25 %. He still has some difficulty sleeping at night due to respiratory issues, but he was comfortable this morning with no complaints at rest (on supplemental oxygen). No chest pain at any time. Review of Systems Cardiovascular: as per Subjective / HPI Gastrointestinal: No recent bowel movement. Physical Exam Physical Exam: No distress, appears reasonably comfortable. Skin: No unusual lesions or ecchymosis. HEENT: Unremarkable. Neck: Jugular venous pulse at the clavicle at 90�, no carotid bruits. Lungs: Dullness at both bases, no obvious crackles today. No wheezing. No accessory muscle use. Cardiac: Regular rhythm with 3/6 right upper sternal border systolic ejection murmur into the carotids and left sternal border/apex, aortic closure sound minimally reduced. No diastolic murmur or distinct gallop. Abdomen: Benign. Extremities: Nontender with trace pretibial edema. Intact peripheral pulses. Neurologic: Unremarkable affect, nonfocal Results & Data Vital Signs (Past 12 Hours) Vital Signs Temp Pulse Pulse Resp BP BP Pulse Ox 02/01/19 07:49 36.5 C 76 25 H 142/80 H 95 02/01/19 07:25 74 02/01/19 07:04 37.0 C 63 22 153/86 H 95 02/01/19 03:35 36.7 C 86 22 129/81 94 01/31/19 23:50 36.6 C 88 22 142/100 H 93 01/31/19 22:20 77 Laboratory Results Laboratory Tests 01/31/19 01/31/19 02/01/19 06:53 15:00 07:01 Hgb 9.9 L BUN 46 H Creatinine 3.35 H D LDL Cholesterol, Calc 73 02/01/19 07:01 Hgb BUN 47 H Creatinine 2.74 H D LDL Cholesterol, Calc Diagnostic Findings ECG 01/31/2019 showed sinus rhythm with age-indeterminate anterior infarct and lateral T-wave inversions. Compared with ECG from the prior day, anterior ST depression has resolved. (1) CHF (congestive heart failure) Heart failure chronicity: unspecified Heart failure type: unspecified Qualified Code(s): I50.9 - Heart failure, unspecified
[2019-02-01 09:45] LABS: iSTAT Art Bld Gas pCO2 Correct 31 mmHg (35-46); iSTAT Art Bld Gas pH Corrected 7.476 (7.35-7.45); iSTAT Arterial Blood Gas pCO2 31 mmHg (35-46); iSTAT Arterial Blood Gas pH 7.48 (7.35-7.45)
[2019-02-01] MEDS: ACETAMINOPHEN 325 MG TAB PO PRN (09:49)
[2019-02-01] MEDS ORDERED: LACTATED RINGER'S 250 ML IV ONE (12:11)
[2019-02-01] MEDS: LIDOCAINE 5% 1 PATCH TD SCH (12:15)
--- NOTE | 2019-02-01 12:41 | XRay Report ---
XR chest 1V portable HISTORY: eval for effusion, s/p thoracentesis this am COMPARISON: Chest 01/24/2019. FINDINGS: No pneumothorax. Small left pleural effusion and left basilar densities persist. Increase i n size in the small right pleural effusion which extends into the right major fissure. The heart is s table in size. No evidence for pulmonary edema. IMPRESSION: 1. No pneumothorax. 2. Increase in size in the small right pleural effusion. This could represent a hemothorax in the maria m ropriate clinical setting. 3. Small left pleural effusion and left basilar densities, unchanged. Electronically signed by: Luis Skelton M.D. 02/01/2019 12:40 PM
--- NOTE | 2019-02-01 14:51 | Family Medicine Progress Note ---
Date of Service February 01, 2019 Assessment & Plan (1) Myocardial infarction: 83-year-old male was admitted on 29 Jan 2019 for several days of SOB and a recent fall with left-sided chest pain from left 8th rib fracture. Myocardial infarction: See related cardiology notes. Thought to be subacute (so stopped heparin) in setting of CHF. Avoiding cardiac cath due to risk of contrast nephropathy. TnI trending down. Medically managed with aspirin, Lasix/bumex, and metoprolol (increased to twice daily). Held home nifedipine. Has allergy to BRITTANY-I (cough). - Added coreg 6.25 mg BID, but watching BP closely. Added atorvastatin. - Consider addition of entresto and/or ARB in near future. - Consider dobutamine stress echo for further cardiac evaluation based on symptoms going forward. Acute respiratory failure with hypoxemia, Bilateral pleural effusions: Secondary to congestive heart failure and IL. 28May underwent right thoracentesis with interval improvement in right effusion. - Trial of lidocaine patch around right chest discomfort. Hypotension: Noted in late am on 28Ma to have SBP into 70�s. This was in the setting of thoracentesis this am, continued diuresis, addition of coreg, a dose of oxycodone, and a large BM shortly prior (e.g. vagal activity). Acutely managed with EKG (new lateral T wave inversions), pCXR (no PTX but small increase in right pleural effusion), TnI (still trending down), and bolus of LR 250 mL IVF. Symptomatically improved (less dizzy) after fluid bolus. - Will recheck TnI again this evening. Held his evening coreg and metoprolol. Heart failure with reduced EF: Admit BNP 17K. 25May TTE noted EF 30 to 35%, large area of anterior apical akinesis, pulmonary hypertension, and various valve disease. CKD stage III: Baseline Cr perhaps 1.9. Max 3.35, since improved to 2.74 with diuresis. On diuretics. Monitoring kidney and volume status. Acute on chronic anemia: Baseline perhaps Hb 12�s. As low as Hb 8.5 on 26May, improved to 9.1 without intervention. Continue to monitor. Abnormal urinalysis: Admit UA was dirty. Urine culture showed no growth. Was briefly on ceftriaxone. Ongoing medical issues: - Hypertension, hyperlipidemia: See IL medications as above. - Diabetes type 2: At home is diet controlled. [id number] HbA1c was 6.2. Here on insulin sliding scale. - Prostate cancer: Reportedly in remission. 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 No noted incontinence here, however. Since last colonoscopy was in his 70�s, unknown results but was told he �didn�t need another� and that he had hemorrhoids. - Depression, dementia: On Celexa. - PMH CVA, gait disorder, frequent falls. Code status: DNR. Diet: Heart healthy, carb count, low sodium 2 gm. DVT prophy: SCD�s. Held chemical prophy around thoracentesis. Likely start subq heparin tomorrow. PT/OT: PT notes �will need rehab�. Disbo: Admitted to PCU telemetry. Case management consulted. Lives at home with . (2) Acute respiratory failure with hypoxemia: (3) Pleural effusion: (4) Hypotension: (5) CHF (congestive heart failure): (6) CKD (chronic kidney disease) stage 3, GFR 30-59 ml/min: (7) Acute on chronic anemia: (8) Hypertension: (9) Hyperlipidemia: (10) DM2 (diabetes mellitus, type 2): (11) History of prostate cancer: (12) Stool incontinence: (13) Depression: (14) Dementia: (15) History of CVA (cerebrovascular accident): (16) Gait disorder: (17) Frequent falls: Supervising Physician Co-Signing Physician Notes I personally examined the patient and verified all reyes points of history and exam, discussed case, and agree with decision making with Dr Genao. seen in AM - having pain in R lower chest hurt w deep breath. no central chest pain no sob just hurts to breathe. Vitals noted, in general he is awake and alert pleasant no distress. HEENT normocephalic atraumatic mucous membranes moist. lungs cta b/l no r/r/w good effort. no new focal neuro deficits. Acute systolic CHF�improving. continue to follow w diuresis but Cr improving. Coronary artery disease�IL prior to admission. Med management secondary risk reduction. With creatinine being elevated there is certainly risk for contrast nephropathy, and given that his IL appears to be stabilized/completed, the benefit would likely be much more nebulous. add statin. Elevated creatinine�uncertain if this is a new baseline if it acute renal insufficiency superimposed on a baseline of stage III CKD. Continue to follow with diuresis - is improving DVT prophylaxis�was on heparin drip. will start heparin SQ once has had a chance to heal from thoracentesis Subjective Earlier this morning found patient resting comfortably with his at bedside. She says that he underwent an apparently successful thoracentesis earlier and had 1.5 L output. Patient himself says that he feels "about the same" since the procedure. He denies any particular pain, acute difficulty breathing, or other acute concerns. Was called back to bedside by the patient's nurse around 11 AM and then again at noon. On both occasions the patient was complaining of some right-sided chest discomfort. Rounding the patient was concurrently more dizzy and was noted to have a systolic blood pressure in the 70s. He remained awake but not fully oriented to events, later recalling that we added nasal cannula oxygen. Patient did not appear in overt respiratory distress. Review of Systems Review of Systems: Per HPI as above. Physical Exam Physical Exam: On examination first thing in the morning�. General Appearance: Awake, alert & oriented, comfortable in general, NAD. CV: +S1S2 RRR, 3/6 systolic murmur. Positive JVD. Pulm: Slight crackles at bilateral bases. No present increased work of breathing. On room air. Abdomen: +BS, soft, non-tender, non-distended. Hannah catheter in place. Extremities: No pedal edema or calf tenderness. Trace edema in bilateral shins. Some ecchymosis to left forearm. Neuro: No gross neuro deficits. Results & Data Vital Signs (Past 12 Hours) Vital Signs Temp Pulse Pulse Resp BP BP Pulse Ox 02/01/19 12:42 94/50 L 02/01/19 12:08 83/45 L 02/01/19 11:55 76/40 L 02/01/19 11:41 36.5 C 60 20 75/46 L 97 02/01/19 10:50 66 18 129/71 95 02/01/19 07:49 36.5 C 76 25 H 142/80 H 95 02/01/19 07:25 74 02/01/19 07:04 37.0 C 63 22 153/86 H 95 02/01/19 03:35 36.7 C 86 22 129/81 94 Laboratory Results 02/01/19 02/01/19 02/01/19 Range/Units 12:10 10:55 07:47 WBC (4.8-10.8) K/uL RBC (4.7-6.1) M/uL Hgb (14.0-18.0) g/dL Hct (42-52) % MCV (80-100) fL MCH (25-34) pg MCHC (32-36) g/dL RDW Std Deviation (36.4-46.3) fL RDW Coeff of Fabián (11.5-14.5) % Plt Count (130-400) K/uL MPV (7.4-10.4) fL Immature Gran % (Auto) % Neut % (Auto) % Lymph % (Auto) % [place] % (Auto) % Eos % (Auto) % Baso % (Auto) % Immature Gran # (Auto) (0.00-0.02) K/uL Neut # (Auto) (1.4-6.5) K/uL Lymph # (Auto) (1.2-3.4) K/uL [place] # (Auto) (0.11-0.59) K/uL Eos # (Auto) (0-0.5) K/uL Baso # (Auto) (0-0.2) K/uL APTT (21.0-31.0) Seconds PTT Ratio Patient Temperature POC pH (7.35-7.45) POC pCO2 (35-46) mmHg POC pO2 (80-95) mmHg POC HCO3 (19-24) meryl/L POC Total CO2 (24-31) mEq/l POC Base Excess (-9-1.8) meryl/L ABG pH (Temp Correct) (7.35-7.45) ABG pCO2 (Temp Corrct (35-46) mmHg POC ABG pO2 at Pt Temp POC ABG O2 Sat (90-95) % Ezequiel Test Sodium (136-145) mmol/L Potassium (3.5-5.1) mmol/L Chloride (98-107) mmol/L Carbon Dioxide (21-32) mmol/L Anion Gap (3-11) BUN (7-18) mg/dl Creatinine (0.6-1.4) mg/dl Est Cr Clr Drug Dosing ml/min Est GFR ( Amer) Est GFR (Non-Af Amer) BUN/Creatinine Ratio (10-20) Glucose (70-99) mg/dl POC Glucose 200 H 94 (70-99) Calcium (8.5-10.1) mg/dl Troponin I 0.395 H* (0-0.045) ng/ml Pleural Fluid Source Pleural Color Pleural Appearance Pleural WBC /uL Pleural RBC /uL Pleural Polynuclear % % Pleural Mononuclear % % Pleural Total Protein g/dl Pleural LDH U/L Pleural Glucose mg/dl Pleural Amylase U/L Pleural Cholesterol 02/01/19 02/01/19 02/01/19 Range/Units 07:41 07:41 07:41 WBC (4.8-10.8) K/uL RBC (4.7-6.1) M/uL Hgb (14.0-18.0) g/dL Hct (42-52) % MCV (80-100) fL MCH (25-34) pg MCHC (32-36) g/dL RDW Std Deviation (36.4-46.3) fL RDW Coeff of Fabián (11.5-14.5) % Plt Count (130-400) K/uL MPV (7.4-10.4) fL Immature Gran % (Auto) % Neut % (Auto) % Lymph % (Auto) % [place] % (Auto) % Eos % (Auto) % Baso % (Auto) % Immature Gran # (Auto) (0.00-0.02) K/uL Neut # (Auto) (1.4-6.5) K/uL Lymph # (Auto) (1.2-3.4) K/uL [place] # (Auto) (0.11-0.59) K/uL Eos # (Auto) (0-0.5) K/uL Baso # (Auto) (0-0.2) K/uL APTT (21.0-31.0) Seconds PTT Ratio Patient Temperature POC pH (7.35-7.45) POC pCO2 (35-46) mmHg POC pO2 (80-95) mmHg POC HCO3 (19-24) meryl/L POC Total CO2 (24-31) mEq/l POC Base Excess (-9-1.8) meryl/L ABG pH (Temp Correct) (7.35-7.45) ABG pCO2 (Temp Corrct (35-46) mmHg POC ABG pO2 at Pt Temp POC ABG O2 Sat (90-95) % Ezequiel Test Sodium (136-145) mmol/L Potassium (3.5-5.1) mmol/L Chloride (98-107) mmol/L Carbon Dioxide (21-32) mmol/L Anion Gap (3-11) BUN (7-18) mg/dl Creatinine (0.6-1.4) mg/dl Est Cr Clr Drug Dosing ml/min Est GFR ( Amer) Est GFR (Non-Af Amer) BUN/Creatinine Ratio (10-20) Glucose (70-99) mg/dl POC Glucose (70-99) Calcium (8.5-10.1) mg/dl Troponin I (0-0.045) ng/ml Pleural Fluid Source RIGHT LUNG Pleural Color CORRIE Pleural Appearance CLOUDY Pleural WBC 165 /u[place] [address] /uL Pleural Polynuclear % 18.7 % Pleural Mononuclear % 81.3 % Pleural Total Protein 1.5 g/dl Pleural LDH 73 U/L Pleural Glucose 113 mg/dl Pleural Amylase 38 U/L Pleural Cholesterol Pending 02/01/19 02/01/19 02/01/19 Range/Units 07:31 07:01 07:01 WBC (4.8-10.8) K/uL RBC (4.7-6.1) M/uL Hgb (14.0-18.0) g/dL Hct (42-52) % MCV (80-100) fL MCH (25-34) pg MCHC (32-36) g/dL RDW Std Deviation (36.4-46.3) fL RDW Coeff of Fabián (11.5-14.5) % Plt Count (130-400) K/uL MPV (7.4-10.4) fL Immature Gran % (Auto) % Neut % (Auto) % Lymph % (Auto) % [place] % (Auto) % Eos % (Auto) % Baso % (Auto) % Immature Gran # (Auto) (0.00-0.02) K/uL Neut # (Auto) (1.4-6.5) K/uL Lymph # (Auto) (1.2-3.4) K/uL [place] # (Auto) (0.11-0.59) K/uL Eos # (Auto) (0-0.5) K/uL Baso # (Auto) (0-0.2) K/uL APTT 28.6 (21.0-31.0) Seconds PTT Ratio 1.1 Patient Temperature 37.0 POC pH 7.48 H (7.35-7.45) POC pCO2 31 L (35-46) mmHg POC pO2 74 L (80-95) mmHg POC HCO3 23 (19-24) meryl/L POC Total CO2 23 L (24-31) mEq/l POC Base Excess -1.0 (-9-1.8) meryl/L ABG pH (Temp Correct) 7.476 H (7.35-7.45) ABG pCO2 (Temp Corrct 31 L (35-46) mmHg POC ABG pO2 at Pt Temp 74 POC ABG O2 Sat 96.0 H (90-95) % Ezequiel Test NA Sodium 140 (136-145) mmol/L Potassium 3.6 (3.5-5.1) mmol/L Chloride 106 (98-107) mmol/L Carbon Dioxide 23 (21-32) mmol/L Anion Gap 11.0 (3-11) BUN 47 H (7-18) mg/dl Creatinine 2.74 H D (0.6-1.4) mg/dl Est Cr Clr Drug Dosing 18.7 ml/min Est GFR ( Amer) 23.9 Est GFR (Non-Af Amer) 20.6 BUN/Creatinine Ratio 17.3 (10-20) Glucose 87 (70-99) mg/dl POC Glucose (70-99) Calcium 8.2 L (8.5-10.1) mg/dl Troponin I (0-0.045) ng/ml Pleural Fluid Source Pleural Color Pleural Appearance Pleural WBC /uL Pleural RBC /uL Pleural Polynuclear % % Pleural Mononuclear % % Pleural Total Protein g/dl Pleural LDH U/L Pleural Glucose mg/dl Pleural Amylase U/L Pleural Cholesterol 02/01/19 01/31/19 01/31/19 Range/Units 07:01 20:10 16:09 WBC 4.52 L (4.8-10.8) K/uL RBC 3.05 L (4.7-6.1) M/uL Hgb 9.9 L (14.0-18.0) g/dL Hct 27.6 L (42-52) % MCV 90.5 (80-100) fL MCH 32.5 (25-34) pg MCHC 35.9 (32-36) g/dL RDW Std Deviation 46.5 H (36.4-46.3) fL RDW Coeff of Fabián 14.1 (11.5-14.5) % Plt Count 193 (130-400) K/uL MPV 8.7 (7.4-10.4) fL Immature Gran % (Auto) 0.0 % Neut % (Auto) 61.2 % Lymph % (Auto) 23.5 % [place] % (Auto) 11.1 % Eos % (Auto) 3.8 % Baso % (Auto) 0.4 % Immature Gran # (Auto) 0.00 (0.00-0.02) K/uL Neut # (Auto) 2.77 (1.4-6.5) K/uL Lymph # (Auto) 1.06 L (1.2-3.4) K/uL [place] # (Auto) 0.50 (0.11-0.59) K/uL Eos # (Auto) 0.17 (0-0.5) K/uL Baso # (Auto) 0.02 (0-0.2) K/uL APTT (21.0-31.0) Seconds PTT Ratio Patient Temperature POC pH (7.35-7.45) POC pCO2 (35-46) mmHg POC pO2 (80-95) mmHg POC HCO3 (19-24) meryl/L POC Total CO2 (24-31) mEq/l POC Base Excess (-9-1.8) meryl/L ABG pH (Temp Correct) (7.35-7.45) ABG pCO2 (Temp Corrct (35-46) mmHg POC ABG pO2 at Pt Temp POC ABG O2 Sat (90-95) % Ezequiel Test Sodium (136-145) mmol/L Potassium (3.5-5.1) mmol/L Chloride (98-107) mmol/L Carbon Dioxide (21-32) mmol/L Anion Gap (3-11) BUN (7-18) mg/dl Creatinine (0.6-1.4) mg/dl Est Cr Clr Drug Dosing ml/min Est GFR ( Amer) Est GFR (Non-Af Amer) BUN/Creatinine Ratio (10-20) Glucose (70-99) mg/dl POC Glucose 128 H 158 H (70-99) Calcium (8.5-10.1) mg/dl Troponin I (0-0.045) ng/ml Pleural Fluid Source Pleural Color Pleural Appearance Pleural WBC /uL Pleural RBC /uL Pleural Polynuclear % % Pleural Mononuclear % % Pleural Total Protein g/dl Pleural LDH U/L Pleural Glucose mg/dl Pleural Amylase U/L Pleural Cholesterol 01/31/19 Range/Units 15:00 WBC (4.8-10.8) K/uL RBC (4.7-6.1) M/uL Hgb (14.0-18.0) g/dL Hct (42-52) % MCV (80-100) fL MCH (25-34) pg MCHC (32-36) g/dL RDW Std Deviation (36.4-46.3) fL RDW Coeff of Fabián (11.5-14.5) % Plt Count (130-400) K/uL MPV (7.4-10.4) fL Immature Gran % (Auto) % Neut % (Auto) % Lymph % (Auto) % [place] % (Auto) % Eos % (Auto) % Baso % (Auto) % Immature Gran # (Auto) (0.00-0.02) K/uL Neut # (Auto) (1.4-6.5) K/uL Lymph # (Auto) (1.2-3.4) K/uL [place] # (Auto) (0.11-0.59) K/uL Eos # (Auto) (0-0.5) K/uL Baso # (Auto) (0-0.2) K/uL APTT (21.0-31.0) Seconds PTT Ratio Patient Temperature POC pH (7.35-7.45) POC pCO2 (35-46) mmHg POC pO2 (80-95) mmHg POC HCO3 (19-24) meryl/L POC Total CO2 (24-31) mEq/l POC Base Excess (-9-1.8) meryl/L ABG pH (Temp Correct) (7.35-7.45) ABG pCO2 (Temp Corrct (35-46) mmHg POC ABG pO2 at Pt Temp POC ABG O2 Sat (90-95) % Ezequiel Test Sodium 137 (136-145) mmol/L Potassium 3.8 (3.5-5.1) mmol/L Chloride 102 (98-107) mmol/L Carbon Dioxide 26 (21-32) mmol/L Anion Gap 9.0 (3-11) BUN 46 H (7-18) mg/dl Creatinine 3.35 H D (0.6-1.4) mg/dl Est Cr Clr Drug Dosing 16.2 ml/min Est GFR ( Amer) 18.8 Est GFR (Non-Af Amer) 16.2 BUN/Creatinine Ratio 13.7 (10-20) Glucose 134 H (70-99) mg/dl POC Glucose (70-99) Calcium 7.4 L (8.5-10.1) mg/dl Troponin I (0-0.045) ng/ml Pleural Fluid Source Pleural Color Pleural Appearance Pleural WBC /uL Pleural RBC /uL Pleural Polynuclear % % Pleural Mononuclear % % Pleural Total Protein g/dl Pleural LDH U/L Pleural Glucose mg/dl Pleural Amylase U/L Pleural Cholesterol Medications Administered Current Inpatient Medications Acetaminophen (Tylenol) 650 mg PO Q4H PRN PRN Reason: Pain or Fever Stop: 02/28/19 12:02 Last Admin: 02/01/19 09:49 Dose: 650 mg Documented by: Al Hydrox/Mg Hydrox/Simethicone (Maalox) 15 ml PO Q4H PRN PRN Reason: Dyspepsia Stop: 02/28/19 12:02 Aspirin (Ecotrin Ectab) 81 mg PO [facility] Stop: 03/01/19 08:59 Last Admin: 02/01/19 08:19 Dose: 81 mg Documented by: Atorvastatin Calcium (Lipitor) 20 mg PO [facility] Stop: 03/04/19 08:59 Bumetanide (Bumex) 2 mg PO [facility] Stop: 03/03/19 08:59 Last Admin: 02/01/19 09:50 Dose: 2 mg Documented by: Carvedilol (Coreg) 6.25 mg PO BID [facility] Stop: 03/03/19 08:59 Last Admin: 02/01/19 09:47 Dose: 6.25 mg Documented by: Citalopram Hydrobromide (Celexa) 20 mg PO DAILY [facility] Stop: 03/01/19 08:59 Last Admin: 02/01/19 08:18 Dose: 20 mg Documented by: Hydromorphone HCl (Dilaudid) 0.25 mg IV Q15M PRN PRN Reason: Pain Stop: 02/12/19 08:26 Last Admin: 01/29/19 08:46 Dose: 0.25 mg Documented by: Insulin Aspart (Novolog Flexpen) 0 units SC ACHS SOPHY Stop: 02/28/19 12:02 Last Admin: 02/01/19 12:04 Dose: 2 units Documented by: Lidocaine (Lidoderm 5%) 1 patch TD QAM [facility] Stop: 03/03/19 11:29 Last Admin: 02/01/19 12:15 Dose: 1 patch Documented by: Metoprolol Tartrate (Lopressor) 12.5 mg PO BID [facility] Stop: 02/28/19 11:14 Last Admin: 02/01/19 08:18 Dose: 12.5 mg Documented by: Miscellaneous (Remove Lidoderm Patch) 1 ea N/A DAILY@2100 [facility] Stop: 03/03/19 20:59 Nitroglycerin (Nitrostat) 0.4 mg SL UD PRN PRN Reason: Chest Pain Stop: 02/28/19 12:02 Ondansetron HCl (Zofran) 4 mg IV Q6H PRN PRN Reason: Nausea Stop: 02/28/19 12:02 Oxycodone HCl (Roxicodone Immediate Rel) 5 mg PO Q4H PRN PRN Reason: pain Stop: 02/12/19 12:02 Last Admin: 02/01/19 10:34 Dose: 5 mg Documented by: Potassium Chloride (Klor-Con M10) 10 meq PO BID [facility] Stop: 03/02/19 08:59 Last Admin: 02/01/19 08:23 Dose: 10 meq Documented by: Resident Activity Tracking Resident Involvement: Resident Care Provided Care Provided: Adult Hospital Medicine (1) CHF (congestive heart failure) Heart failure chronicity: unspecified Heart failure type: unspecified Qualified Code(s): I50.9 - Heart failure, unspecified
--- NOTE | 2019-02-01 23:02 | Operative Report ---
DATE OF OPERATION: 02/01/2019 PREOPERATIVE DIAGNOSIS: Large right pleural effusion. POSTOPERATIVE DIAGNOSIS: Large right pleural effusion. PROCEDURE: Ultrasound-guided right thoracentesis at bedside. SURGEON: Jt Cintron MD ACCOUNT SERVICES REPRESENTATIVE: MOHIT Greenberg ANESTHESIA: Local. SPECIFICS OF PROCEDURE: After a long talk with the patient and his , we elected to proceed with a thoracentesis. With the patient in the upright position, an ultrasound was used and we found a good window into his right pleural cavity, which was posterior and a bit lateral. This was marked with ink and he was prepped and draped in the usual sterile fashion. After appropriate timeout had been called, a 25-gauge needle with 1% Xylocaine was used without epinephrine and anesthetized the skin and subcutaneous tissues and deeper muscle layers and pleura. A large bore needle was then used to enter the pleural cavity and free flowing fluid was obtained and the syringe removed. A guidewire was inserted through the needle and the needle removed. Triple lumen catheter was slid over the guidewire to 17 cm and guidewire removed. A 1600 mL of rust colored fluid was drained. He had some re-expansion coughing with some mild pain. We did not drain this dry. I removed the catheter. Antimicrobial dressing was placed. He tolerated it well without bleeding at the site. Chest x-ray showed good expansion of his lung. He tolerated the procedure quite nicely. I attest to the content of the Intraoperative Record and any orders documented therein. Any exception s are noted below.
[2019-02-02 06:16] LABS: Basophils # (auto) 0.01 K/uL (0-0.2); Basophils % (auto) 0.2 %; Eosinophils % (auto) 2.1 %; Hematocrit (blood only) 22.3 % (42-52); Hemoglobin 7.7 g/dL (14.0-18.0); Immature Granulocytes # (auto) 0.01 K/uL (0.00-0.02); Immature Granulocytes % (auto) 0.2 %; Lymphocytes # (auto) 0.99 K/uL (1.2-3.4); Lymphocytes % (auto) 21.2 %; Mean Corpuscular Hgb Conc 34.5 g/dL (32-36); Mean Corpuscular Volume 92.5 fL (80-100); Monocytes # (auto) 0.47 K/uL (0.11-0.59); Neutrophils % (auto) 66.3 %; Platelet Count 178 K/uL (130-400); RDW Coefficient of Variation 14.4 % (11.5-14.5); RDW Standard Deviation 48.2 fL (36.4-46.3); Red Blood Count 2.41 M/uL (4.7-6.1); White Blood Count 4.68 K/uL (4.8-10.8)
[2019-02-02 06:34] LABS: RBC Morphology Unremarkable
[2019-02-02 06:35] LABS: Partial Thromboplastin Ratio 1.1; Partial Thromboplastin Time 29.6 Seconds (21.0-31.0)
[2019-02-02 06:53] LABS: BUN Creatinine Ratio 16.6 (10-20); Creatinine Clr Calc Pharmacy 16.5 ml/min; Est GFR (African American) 21.3; Est GFR (Non-African American) 18.3; Potassium 4.5 mmol/L (3.5-5.1)
--- NOTE | 2019-02-02 06:59 | XRay Report ---
XR chest 1V portable CLINICAL HISTORY: effusion COMPARISON STUDY: 02/01/2019 FINDINGS: The heart remains enlarged. There are persistent bilateral pleural effusions. There is radi ographic evidence of congestive failure/fluid overload. There are basilar airspace opacities, likely secondary to compressive atelectasis.[ IMPRESSION: Cardiomegaly, radiographic evidence of mild congestive failure/fluid overload, and persis tent bilateral pleural effusions with associated basilar opacities Electronically signed by: Ayush Duron M.D. 02/02/2019 6:58 AM
[2019-02-02] MEDS: ASPIRIN 81 MG ECTAB PO SCH (08:01)
[2019-02-02] MEDS: POTASSIUM CHLORIDE 10 MEQ TABCR PO SCH ×2 (08:01→20:25)
[2019-02-02] MEDS: ATORVASTATIN 20 MG TAB PO SCH (08:02)
[2019-02-02] MEDS: CITALOPRAM 20 MG TAB PO SCH (08:02)
[2019-02-02] MEDS: LIDOCAINE 5% 1 PATCH TD SCH (08:02)
[2019-02-02] MEDS: INSULIN ASPART 100 UNITS/ML 3 ML PEN SC SCH ×5 (08:04→21:20)
--- NOTE | 2019-02-02 08:56 | Cardiology Progress Note ---
Date of Service February 02, 2019 Assessment & Plan (1) CHF (congestive heart failure): For the first time since he was admitted, he appears to have comfortable respirations. Ability to lie flat, chest auscultation and neck veins all suggest he is now euvolemic. Elevated creatinine initially improved with diuresis, mild increased overnight likely related to his volatile hemodynamic course yesterday. Given his recent hypotension, transient need for her IV fluids yesterday, and appearance of euvolemiatoday, hold diuretics now and and administer only on a PRN basis today if evidence of recurrent heart failure, otherwise reassess clinical/volume status tomorrow. (2) Acute NE anterior wall first episode care: Given the patient's significant underlying renal disease, in the absence of evidence for an acute event with active ischemia would avoid cardiac catheterization due to the risk of contrast nephropathy resulting in acute renal failure/need for dialysis. His chest pain yesterday was unlikely to be ischemic, his ECG showed no ST changes and his troponin continues to decline. May have been pleural irritation (he had thoracentesis earlier in the day) Holding vaso active drugs after his hypotension, would gently reintroduce beta- janusz and add carvedilol back only if his systolic blood pressure is above 120 mm Hg in a sustained fashion. Not immediately an ARB candidate given his elevated and labile creatinine. Although his LDL is excellent (73), given evidence for coronary artery disease would initiate at least a low-dose statin. Continue aspirin, will not add additional anti-platelet agent at this time (unexplained anemia). (3) Acute respiratory failure with hypoxemia: Resolved. Secondary to congestive heart failure from apparent subacute anteroapical infarct. (4) Pleural effusion: Secondary to CHF. Thoracentesis performed 02/[address] Cintron (5) Type 2 DM with CKD and hypertension: Subjective 83-year-old man admitted 01/29/2019 with subacute congestive heart failure symptoms, found on echo to have a large area of anteroapical akinesis and an EF of 20-25 %. He had a difficult yesterday with chest pain and transient hypotension. His vaso active regimen had been intensified and had thoracentesis in morning, he did respond to IV fluids. Uneventful night, he feels significantly better this morning. He is lying quietly without supplemental oxygen and notes no dyspnea. No chest pain currently. No complaints at rest. Review of Systems Respiratory: no dyspnea Cardiovascular: as per Subjective / HPI Gastrointestinal: had non-bloody BM Neurologic: no localized weakness Physical Exam Physical Exam: No distress, appears comfortable. Skin: No unusual lesions or ecchymosis. HEENT: Unremarkable. Neck: Jugular venous pulse at the clavicle at 30�, no carotid bruits. Lungs: Dullness at both bases, no crackles today. No wheezing. No accessory muscle use. Cardiac: Regular rhythm with 3/6 right upper sternal border systolic ejection murmur into the carotids and left sternal border/apex, aortic closure sound minimally reduced. No diastolic murmur or distinct gallop. Abdomen: Benign. Extremities: Nontender with no edema. Intact peripheral pulses. Neurologic: Unremarkable affect, nonfocal Results & Data Vital Signs (Past 12 Hours) Vital Signs Temp Pulse Resp BP Pulse Ox 02/02/19 07:57 37 C 88 23 119/66 95 02/02/19 06:42 36.6 C 75 20 112/61 95 02/02/19 04:00 36.7 C 71 16 106/55 L 02/02/19 00:00 36.8 C 74 15 120/65 94 Laboratory Results Laboratory Tests 01/30/19 02/01/19 02/01/19 07:56 07:01 12:10 Potassium BUN 47 H Creatinine 2.74 H D Troponin I 0.761 H* 0.395 H* 02/01/19 02/02/19 18:13 05:59 Potassium 4.5 D BUN 50 H Creatinine 3.02 H Troponin I 0.377 H* Diagnostic Findings CXR FINDINGS: The heart remains enlarged. There are persistent bilateral pleural effusions. There is radiographic evidence of congestive failure/fluid overload. There are basilar airspace opacities, likely secondary to compressive atelectasis.[ IMPRESSION: Cardiomegaly, radiographic evidence of mild congestive failure/fluid overload, and persistent bilateral pleural effusions with associated basilar opacities (1) CHF (congestive heart failure) Heart failure chronicity: unspecified Heart failure type: unspecified Qualified Code(s): I50.9 - Heart failure, unspecified
--- NOTE | 2019-02-02 09:39 | Progress Note ---
DATE: 02/02/2019 The patient appears to be stable. He has good saturations on room air while I was at the bedside. I am a bit concerned about his hemoglobin. He dropped from 11.1 down to 8.5 rather acutely a few days ago. This went back up to 9.1, but it was 9.9 yesterday morning, but has now dropped down to 7.7. I would continue to check serial hemoglobins. Hemodynamically appears stable. His x-ray shows some reaccumulation of fluid. This fluid is transudative, which is probably related to his heart failure. Really did not have much in the way of red cells in the fluid and it was clear. His LDH was only 73. There is no evidence of infection or malignancy thus far, although the cytology is still pending. We will check another x-ray in the morning as he is reaccumulating some fluid. I doubt we are bleeding, but I would continue to check serial hemoglobins.
--- NOTE | 2019-02-02 15:12 | Family Medicine Progress Note ---
Date of Service February 02, 2019 Assessment & Plan (1) Myocardial infarction: 83-year-old male was admitted on 29 Jan 2019 for several days of SOB and a recent fall with left-sided chest pain from left 8th rib fracture. Myocardial infarction: See related cardiology notes. Thought to be subacute (so off heparin) in setting of CHF. Avoiding cardiac cath due to risk of contrast nephropathy. TnI trended down. Medically managed with aspirin, Lasix/bumex prn, and metoprolol (increased to twice daily). Held home nifedipine. Has allergy to BRITTANY-I (cough). Briefly added coreg but some issues with hypotension. Added atorvastatin. - Consider addition of entresto and/or ARB in near future. - Consider dobutamine stress echo for further cardiac evaluation based on symptoms going forward. Acute respiratory failure with hypoxemia, Bilateral pleural effusions: Secondary to congestive heart failure and PR. 28May s/p right thoracentesis of 1600 mL but some re-accumulation on repeat pCXR this AM. 28May pleural fluid tests pending. On lidocaine patch for right chest discomfort. Presently on room air. Hypotension: On 28May with SBP into 70�s, likely multifactorial (see 28May note). Held his diuretic and B-blockers with improvement of BP this am. See related cardiology notes. Heart failure with reduced EF: Admit BNP 17K. 25May TTE noted EF 30 to 35%, large area of anterior apical akinesis, pulmonary hypertension, and various valve disease. CKD stage III: Baseline Cr perhaps 1.9. Max 3.35, with waxing/waning likely related to overall volume status. Monitoring. Acute on chronic anemia: Baseline perhaps Hb 12�s. Noted to have drop to Hb on 29May. Did have thoracentesis on 28May, though do not suspect intra-thoracic bleed at present. See thoracic surgery notes. Monitoring Hb closely. Abnormal urinalysis: Admit UA was dirty. Urine culture showed no growth. Was briefly on ceftriaxone. Malnutrition risk: Has had some decreased PO intake during this hospitalization. Albumin is borderline low. Will start boost/ensure supplementation with meals. Ongoing medical issues: - Hypertension, hyperlipidemia: See PR medications as above. - Diabetes type 2: At home is diet controlled. [id number] HbA1c was 6.2. Here on insulin sliding scale. - Prostate cancer: Reportedly in remission. 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 No noted incontinence here, however. Since last colonoscopy was in his 70�s, unknown results but was told he �didn�t need another� and that he had hemorrhoids. - Depression, dementia: On Celexa. - PMH CVA, gait disorder, frequent falls. Code status: DNR. Diet: Heart healthy, carb count, low sodium 2 gm. DVT prophy: SCD�s. Will start lower-dose heparin subq. PT/OT: PT notes �will need rehab�. Disbo: Admitted to PCU telemetry. Case management consulted. Lives at home wi th . (2) Acute respiratory failure with hypoxemia: (3) Pleural effusion: (4) Hypotension: (5) CHF (congestive heart failure): (6) CKD (chronic kidney disease) stage 3, GFR 30-59 ml/min: (7) Acute on chronic anemia: (8) Hypertension: (9) Hyperlipidemia: (10) DM2 (diabetes mellitus, type 2): (11) History of prostate cancer: (12) Stool incontinence: (13) Depression: (14) Dementia: (15) History of CVA (cerebrovascular accident): (16) Gait disorder: (17) Frequent falls: Supervising Physician Co-Signing Physician Notes I personally examined the patient and verified all reyes points of history and exam, discussed case, and agree with decision making with Dr Genao. Feeling much better. Sitting upright and eating. Family present. Answered all questions to the best my ability and to their satisfaction. Vitals noted, in general he is awake and alert pleasant no distress. HEENT normocephalic atraumatic mucous membranes moist. Breathing unlabored no accessory muscle use good effort. No new focal neuro deficits. Acute systolic CHF�improving. For now hold off on further diuresis given yester day's low blood pressure and currently appearing euvolemic. Follow closely. Coronary artery disease�PR prior to admission. Med management secondary risk reduction ongoing. With creatinine being elevated there is certainly risk for contrast nephropathy, and given that his PR appears to be stabilized/completed, the benefit would likely be much more nebulous. Currently this appears to be stable now. Elevated creatinine�uncertain if this is a new baseline if it acute kidney injury superimposed on a baseline of stage III CKD. We will need to continue to follow, my suspicion is there is a degree of acute kidney injury superimposed on chronic worsening. Volume status shifting is also making it difficult to interpret, continue to follow closely. DVT prophylaxis�was on heparin drip. We will start subcu heparin tonight, cautiously following hemoglobin. He does not appear to be bleeding, his hemoglobin is a bit lower but without any clear blood loss to show for it, suggesting fluid shifting and lab variation, and certainly with his poor mobility and significant CHF, he would be higher risk for venous thrombi embolic disease, and would have zero margin of error to tolerate a thromboembolic event. Follow hemoglobin closely with heparin. Subjective Found patient resting comfortably on morning rounds. Overall he says he feels about the same as yesterday. However, in discussion with his at bedside the patient looks much improved compared to yesterday (i.e. is more conversational, sitting upright, and eating some breakfast). She says that he continues to have decreased appetite but his breathing appears improved. Patient is not complaining of any pain but did mention that he had his lidocaine patch switched out. He said he is not sure that it is helping. Both patient and his did not have any immediate concerns. Review of Systems Review of Systems: Per HPI as above. Physical Exam Physical Exam: General Appearance: Awake, alert & oriented, comfortable in general, NAD. CV: +S1S2 RRR, 3/6 systolic murmur. No JVD today. Pulm: CTA (B). No present increased work of breathing. On room air. Abdomen: +BS, soft, non-tender, non-distended. Hannah catheter in place. Extremities: No pedal edema or calf tenderness. Trace edema in bilateral shins. Some ecchymosis to left forearm. Neuro: No gross neuro deficits. Results & Data Vital Signs (Past 12 Hours) Vital Signs Temp Pulse Pulse Resp BP Pulse Ox 02/02/19 11:45 37.0 C 84 18 125/72 95 02/02/19 07:57 37 C 88 23 119/66 95 02/02/19 07:25 75 02/02/19 06:42 36.6 C 75 20 112/61 95 02/02/19 04:00 36.7 C 71 16 106/55 L Laboratory Results 02/02/19 02/02/19 02/02/19 Range/Units 14:50 11:31 08:03 WBC (4.8-10.8) K/uL RBC (4.7-6.1) M/uL Hgb 8.0 L (14.0-18.0) g/dL Hct 23.0 L (42-52) % MCV (80-100) fL MCH (25-34) pg MCHC (32-36) g/dL RDW Std Deviation (36.4-46.3) fL RDW Coeff of Fabián (11.5-14.5) % Plt Count (130-400) K/uL MPV (7.4-10.4) fL Immature Gran % (Auto) % Neut % (Auto) % Lymph % (Auto) % [place] % (Auto) % Eos % (Auto) % Baso % (Auto) % Immature Gran # (Auto) (0.00-0.02) K/uL Neut # (Auto) (1.4-6.5) K/uL Lymph # (Auto) (1.2-3.4) K/uL [place] # (Auto) (0.11-0.59) K/uL Eos # (Auto) (0-0.5) K/uL Baso # (Auto) (0-0.2) K/uL RBC Morphology APTT (21.0-31.0) Seconds PTT Ratio Sodium (136-145) mmol/L Potassium (3.5-5.1) mmol/L Chloride (98-107) mmol/L Carbon Dioxide (21-32) mmol/L Anion Gap (3-11) BUN (7-18) mg/dl Creatinine (0.6-1.4) mg/dl Est Cr Clr Drug Dosing ml/min Est GFR ( Amer) Est GFR (Non-Af Amer) BUN/Creatinine Ratio (10-20) Glucose (70-99) mg/dl POC Glucose 145 H 144 H (70-99) Calcium (8.5-10.1) mg/dl Troponin I (0-0.045) ng/ml 02/02/19 02/02/19 02/02/19 Range/Units 05:59 05:59 05:59 WBC 4.68 L (4.8-10.8) K/uL RBC 2.41 L (4.7-6.1) M/uL Hgb 7.7 L (14.0-18.0) g/dL Hct 22.3 L (42-52) % MCV 92.5 (80-100) fL MCH 32.0 (25-34) pg MCHC 34.5 (32-36) g/dL RDW Std Deviation 48.2 H (36.4-46.3) fL RDW Coeff of Fabián 14.4 (11.5-14.5) % Plt Count 178 (130-400) K/uL MPV 9.0 (7.4-10.4) fL Immature Gran % (Auto) 0.2 % Neut % (Auto) 66.3 % Lymph % (Auto) 21.2 % [place] % (Auto) 10.0 % Eos % (Auto) 2.1 % Baso % (Auto) 0.2 % Immature Gran # (Auto) 0.01 (0.00-0.02) K/uL Neut # (Auto) 3.10 (1.4-6.5) K/uL Lymph # (Auto) 0.99 L (1.2-3.4) K/uL [place] # (Auto) 0.47 (0.11-0.59) K/uL Eos # (Auto) 0.10 (0-0.5) K/uL Baso # (Auto) 0.01 (0-0.2) K/uL RBC Morphology Unremarkable APTT 29.6 (21.0-31.0) Seconds PTT Ratio 1.1 Sodium 140 (136-145) mmol/L Potassium 4.5 D (3.5-5.1) mmol/L Chloride 106 (98-107) mmol/L Carbon Dioxide 24 (21-32) mmol/L Anion Gap 11.0 (3-11) BUN 50 H (7-18) mg/dl Creatinine 3.02 H (0.6-1.4) mg/dl Est Cr Clr Drug Dosing 16.5 ml/min Est GFR ( Amer) 21.3 Est GFR (Non-Af Amer) 18.3 BUN/Creatinine Ratio 16.6 (10-20) Glucose 105 H (70-99) mg/dl POC Glucose (70-99) Calcium 8.0 L (8.5-10.1) mg/dl Troponin I (0-0.045) ng/ml 02/01/19 02/01/1902/01/19 Range/Units 20:11 18:13 16:55 WBC (4.8-10.8) K/uL RBC (4.7-6.1) M/uL Hgb (14.0-18.0) g/dL Hct (42-52) % MCV (80-100) fL MCH (25-34) pg MCHC (32-36) g/dL RDW Std Deviation (36.4-46.3) fL RDW Coeff of Fabián (11.5-14.5) % Plt Count (130-400) K/uL MPV (7.4-10.4) fL Immature Gran % (Auto) % Neut % (Auto) % Lymph % (Auto) % [place] % (Auto) % Eos % (Auto) % Baso % (Auto) % Immature Gran # (Auto) (0.00-0.02) K/uL Neut # (Auto) (1.4-6.5) K/uL Lymph # (Auto) (1.2-3.4) K/uL [place] # (Auto) (0.11-0.59) K/uL Eos # (Auto) (0-0.5) K/uL Baso # (Auto) (0-0.2) K/uL RBC Morphology APTT (21.0-31.0) Seconds PTT Ratio Sodium (136-145) mmol/L Potassium (3.5-5.1) mmol/L Chloride (98-107) mmol/L Carbon Dioxide (21-32) mmol/L Anion Gap (3-11) BUN (7-18) mg/dl Creatinine (0.6-1.4) mg/dl Est Cr Clr Drug Dosing ml/min Est GFR ( Amer) Est GFR (Non-Af Amer) BUN/Creatinine Ratio (10-20) Glucose (70-99) mg/dl POC Glucose 196 H 163 H (70-99) Calcium (8.5-10.1) mg/dl Troponin I 0.377 H* (0-0.045) ng/ml Medications Administered Current Inpatient Medications Acetaminophen (Tylenol) 650 mg PO Q4H PRN PRN Reason: Pain or Fever Stop: 02/28/19 12:02 Last Admin: 02/01/19 09:49 Dose: 650 mg Documented by: Al Hydrox/Mg Hydrox/Simethicone (Maalox) 15 ml PO Q4H PRN PRN Reason: Dyspepsia Stop: 02/28/19 12:02 [facility]) [facility] [place]: 03/01/19 08:59 Last Admin: 02/02/19 08:01 Dose: 81 mg Documented by: Atorvastatin Calcium (Lipitor) [facility] Stop: 03/04/19 08:59 Last Admin: 02/02/19 08:02 Dose: 20 mg Documented by: [facility]umetanide (Bumex) [facility] [place] Stop: 03/03/19 08:59 Last Admin: 02/01/19 09:50 Dose: 2 mg Documented by: Carvedilol (Coreg) 6.25 mg PO BID [facility] Stop: 03/03/19 08:59 Last Admin: 02/01/19 09:47 Dose: 6.25 mg Documented by: Citalopram Hydrobromide (Celexa) 20 mg PO DAILY [facility] Stop: 03/01/19 08:59 Last Admin: 02/02/19 08:02 Dose: 20 mg Documented by: Hydromorphone HCl (Dilaudid) 0.25 mg IV Q15M PRN PRN Reason: Pain Stop: 02/12/19 08:26 Last Admin: 01/29/19 08:46 Dose: 0.25 mg Documented by: Insulin Aspart (Novolog Flexpen) 0 units SC ACHS [facility] Stop: 02/28/19 12:02 Last Admin: 02/02/19 12:16 Dose: Not Given Documented by: Lidocaine (Lidoderm 5%) [facility] [place]: 03/03/19 11:29 Last Admin: 02/02/19 08:02 Dose: 1 patch Documented by: Metoprolol Tartrate (Lopressor) 12.5 mg PO BID [facility] Stop: 02/28/19 11:14 Last Admin: 02/01/19 08:18 Dose: 12.5 mg Documented by: Miscellaneous (Remove Lidoderm Patch) 1 ea N/A DAILY@2100 [facility] Stop: 03/03/19 20:59 Last Admin: 02/01/19 20:30 Dose: Not Given Documented by: Nitroglycerin (Nitrostat) 0.4 mg SL UD PRN PRN Reason: Chest Pain Stop: 02/28/19 12:02 Ondansetron HCl (Zofran) 4 mg IV Q6H PRN PRN Reason: Nausea Stop: 02/28/19 12:02 Oxycodone HCl (Roxicodone Immediate Rel) 5 mg PO Q4H PRN PRN Reason: pain Stop: 02/12/19 12:02 Last Admin: 02/01/19 10:34 Dose: 5 mg Documented by: Potassium Chloride (Klor-Con M10) 10 meq PO BID [facility] Stop: 03/02/19 08:59 Last Admin: 02/02/19 08:01 Dose: 10 meq Documented by: Resident Activity Tracking Resident Involvement: Resident Care Provided Care Provided: Adult Hospital Medicine (1) CHF (congestive heart failure) Heart failure chronicity: unspecified Heart failure type: unspecified Qualified Code(s): I50.9 - Heart failure, unspecified
[2019-02-02] MEDS ORDERED: DEXTROSE 50% 50 ML SYRINGE IV PRN (18:15)
[2019-02-02] MEDS ORDERED: GLUCAGON FOR INJ 1 MG VIAL IM PRN (18:15)
[2019-02-02] MEDS ORDERED: GLUCOSE 40% GEL 15 GM TUBE PO PRN (18:15)
[2019-02-02] MEDS ORDERED: CARBOHYDRATES FOR HYPOGLYCEMIA PO PRN (18:15)
[2019-02-02] MEDS ORDERED: GLUCOSE 10 TABS/TUBE PO PRN (18:15)
[2019-02-02] MEDS: METOPROLOL TARTRATE 25 MG TAB PO SCH (20:26)
[2019-02-02] MEDS: HEPARIN SOD 5,000 UNIT/0.5 ML VIAL SQ SCH (21:21)
[2019-02-03 07:17] LABS: Eosinophils % (auto) 2.3 %; Hematocrit (blood only) 21.1 % (42-52); Hemoglobin 7.4 g/dL (14.0-18.0); Lymphocytes # (auto) 0.83 K/uL (1.2-3.4); Lymphocytes % (auto) 18.7 %; Mean Corpuscular Hgb Conc 35.1 g/dL (32-36); Mean Corpuscular Volume 92.5 fL (80-100); Mean Platelet Volume 9.3 fL (7.4-10.4); Monocytes # (auto) 0.52 K/uL (0.11-0.59); Monocytes % (auto) 11.7 %; Neutrophils # (auto) 2.98 K/uL (1.4-6.5); Neutrophils % (auto) 67.3 %; Platelet Count 180 K/uL (130-400); RDW Coefficient of Variation 14.4 % (11.5-14.5); RDW Standard Deviation 48.1 fL (36.4-46.3); Red Blood Count 2.28 M/uL (4.7-6.1); White Blood Count 4.43 K/uL (4.8-10.8)
[2019-02-03 07:48] LABS: BUN Creatinine Ratio 19.1 (10-20); Calcium 7.9 mg/dl (8.5-10.1); Creatinine Clr Calc Pharmacy 18.5 ml/min; Est GFR (African American) 24.7; Est GFR (Non-African American) 21.3; Potassium 4.4 mmol/L (3.5-5.1)
[2019-02-03 08:03] LABS: RBC Morphology Unremarkable
[2019-02-03] MEDS: HEPARIN SOD 5,000 UNIT/0.5 ML VIAL SQ SCH ×2 (08:22→20:50)
[2019-02-03] MEDS: INSULIN ASPART 100 UNITS/ML 3 ML PEN SC SCH ×4 (08:22→20:51)
[2019-02-03] MEDS: METOPROLOL TARTRATE 25 MG TAB PO SCH ×2 (08:26→20:50)
[2019-02-03] MEDS: ASPIRIN 81 MG ECTAB PO SCH (08:27)
[2019-02-03] MEDS: ATORVASTATIN 20 MG TAB PO SCH (08:27)
[2019-02-03] MEDS: CITALOPRAM 20 MG TAB PO SCH (08:28)
[2019-02-03] MEDS: POTASSIUM CHLORIDE 10 MEQ TABCR PO SCH ×2 (08:28→20:50)
[2019-02-03] MEDS: LIDOCAINE 5% 1 PATCH TD SCH (08:31)
[2019-02-03] MEDS: EUCERIN CR 120 GM JAR EXT SCH ×3 (12:05→20:50)
--- NOTE | 2019-02-03 12:17 | Family Medicine Progress Note ---
Date of Service February 03, 2019 Assessment & Plan (1) Myocardial infarction: 83-year-old male was admitted on 29 Jan 2019 for several days of SOB and a recent fall with left-sided chest pain from left 8th rib fracture. Myocardial infarction: See related cardiology notes. Thought to be subacute (so off heparin) in setting of CHF. Avoiding cardiac cath due to risk of contrast nephropathy. TnI trended down. Medically managed with aspirin, Lasix/bumex prn, and metoprolol (increased to twice daily). Held home nifedipine. Has allergy to BRITTANY-I (cough). Briefly added coreg but some issues with hypotension. Added atorvastatin. - Consider addition of entresto and/or ARB in near future. - Consider dobutamine stress echo for further cardiac evaluation based on symptoms going forward. Acute respiratory failure with hypoxemia, Bilateral pleural effusions: Secondary to congestive heart failure and IA. 28May s/p right thoracentesis of 1600 mL but some re-accumulation on repeat pCXR this AM. 28May pleural fluid tests pending. On lidocaine patch for right chest discomfort. Presently on room air. - Thoracic surgery recommend seeing him in their office in 1 week after discharge with an x-ray. Hypotension: On 28May with SBP into 70�s, likely multifactorial (see 28May no te). See related cardiology notes. Heart failure with reduced EF: Admit BNP 17K. 25May TTE noted EF 30 to 35%, large area of anterior apical akinesis, pulmonary hypertension, and various valve disease (see full report). Held his diuretics again today (30May). - Will need variable diuretic dosing going forwards based on symptoms, weight, and (when possible) physical exam. E.g., bumetanide 2 mg p.o. p.r.n. weight gain greater than or equal to 3 pounds CKD stage III: Baseline Cr perhaps 1.9. Max 3.35, with waxing/waning likely related to overall volume status. Monitoring. Acute on chronic anemia: Baseline perhaps Hb 12�s. Did have thoracentesis on 28May, though do not suspect intra-thoracic bleed at present. See thoracic surgery notes. Back down to Hb 7.4 without overt evidence of acute bleeding. Monitoring. Abnormal urinalysis: Admit UA was dirty. Urine culture showed no growth. Was briefly on ceftriaxone. Malnutrition risk: Has had some decreased PO intake during this hospitalization. Albumin is borderline low. On boost/ensure supplementation with meals. Dermatitis: 30May noted a likely mild dermatitis rash on his back due to his increased time lying supine recently. Does not appear cellulitic or overtly allergic. Will start treatment with Eucerin. Consider topical steroids as needed. Ongoing medical issues: - Hypertension, hyperlipidemia: See IA medications as above. - Diabetes type 2: At home is diet controlled. [id number] HbA1c was 6.2. Here on insulin sliding scale. - Prostate cancer: Reportedly in remission. 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 No noted incontinence here, however. Since last colonoscopy was in his 70�s, unknown results but was told he �didn�t need another� and that he had hemo rrhoids. - Depression, dementia: On Celexa. - PMH CVA, gait disorder, frequent falls. Code status: DNR. Diet: Heart healthy, carb count, low sodium 2 gm. DVT prophy: SCD�s. Will start lower-dose heparin subq. PT/OT: PT notes �will need rehab�. Disbo: Admitted to PCU telemetry. Case management consulted. Lives at home with . (2) Acute respiratory failure with hypoxemia: (3) Pleural effusion: (4) Hypotension: (5) CHF (congestive heart failure): (6) CKD (chronic kidney disease) stage 3, GFR 30-59 ml/min: (7) Acute on chronic anemia: (8) Hypertension: (9) Hyperlipidemia: (10) DM2 (diabetes mellitus, type 2): (11) History of prostate cancer: (12) Stool incontinence: (13) Depression: (14) Dementia: (15) History of CVA (cerebrovascular accident): (16) Gait disorder: (17) Frequent falls: (18) Dermatitis: Supervising Physician Co-Signing Physician Notes I personally examined the patient and verified all reyes points of history and exam, discussed case, and agree with decision making with Dr Genao. Looking good feeling good. Breathing well. Case discussed with cardiology, looking good, feeling good. Vitals noted, in general he is awake and alert pleasant no distress. HEENT normocephalic atraumatic mucous membranes moist. Breathing unlabored no accessory muscle use good effort. No new focal neuro deficits. Acute systolic CHF�improving. Appearing euvolemic, Continue to follow off of diuretics for now.Discussed with patient and he will likely need an ongoing dose of diuretic but right now it will need to be dynamic based on his fluid status day today. This will likely go on throughout his rehab stay, but by the time he is ready to get home from rehab likely we will be able to have a reasonable daily fluid plan with escalation for gaining weight. Coronary artery disease�IA prior to admission. Med management secondary risk reduction ongoing. No cath warranted due to risk of contrast nephropathy and stable symptoms. Likely would benefit from a stress echo once he is more stable and recovered overall to look for any signs of reversible ischemia. Elevated creatinine�uncertain if this is a new baseline if it acute kidney injury superimposed on a baseline of stage III CKD. We will need to continue to follow, my suspicion is there is a degree of acute kidney injury superimposed on chronic worsening. Has improved from yesterday to today DVT prophylaxis�Cautiously utilizing subcu heparin, Follow hemoglobin Anemia�No signs or symptoms of blood loss, continue to follow. Subjective Found patient resting comfortably in his bedside chair. He continues to not volunteer any information but in general says that he is comfortable, denying any difficulty breathing, chest pain, or other acute concerns. His is presently concerned about a rash that she just noticed on his back. She says it seems to be itchy for him. Otherwise she has no other raised acute concerns. Review of Systems Review of Systems: Per HPI as above. Physical Exam Physical Exam: General Appearance: Awake, alert & oriented, comfortable in general, NAD. CV: +S1S2 RRR, 3/6 systolic murmur. No JVD today. Pulm: Mildly decreased breath sounds at bilateral bases. No present increased work of breathing. On room air. Abdomen: +BS, soft, non-tender, non-distended. Hannah catheter in place. Extremities: No pedal edema or calf tenderness. Trace edema in bilateral shins. Some ecchymosis to left forearm. Neuro: No gross neuro deficits. Back: There is a diffuse mostly macular patchy rash over the upper back that is easily blanchable. No areas of generalized erythema, edema, drainage, pustules, or tenderness. Results & Data Vital Signs (Past 12 Hours) Vital Signs Temp Pulse Pulse Pulse Resp BP BP 02/03/19 11:16 36.7 C 66 14 104/56 L 02/03/19 07:35 73 02/03/19 07:09 36.5 C 75 18 110/60 02/03/19 03:44 36.7 C 88 20 114/65 Pulse Ox 02/03/19 11:16 98 02/03/19 07:35 02/03/19 07:09 98 02/03/19 03:44 95 Laboratory Results 02/03/19 02/03/19 02/03/19 Range/Units 16:14 11:20 07:08 WBC (4.8-10.8) K/uL RBC (4.7-6.1) M/uL Hgb (14.0-18.0) g/dL Hct (42-52) % MCV (80-100) fL MCH (25-34) pg MCHC (32-36) g/dL RDW Std Deviation (36.4-46.3) fL RDW Coeff of Fabián (11.5-14.5) % Plt Count (130-400) K/uL MPV (7.4-10.4) fL Immature Gran % (Auto) % Neut % (Auto) % Lymph % (Auto) % Canadian % (Auto) % Eos % (Auto) % Baso % (Auto) % Immature Gran # (Auto) (0.00-0.02) K/uL Neut # (Auto) (1.4-6.5) K/uL Lymph # (Auto) (1.2-3.4) K/uL Canadian # (Auto) (0.11-0.59) K/uL Eos # (Auto) (0-0.5) K/uL Baso # (Auto) (0-0.2) K/uL RBC Morphology Sodium (136-145) mmol/L Potassium (3.5-5.1) mmol/L Chloride (98-107) mmol/L Carbon Dioxide (21-32) mmol/L Anion Gap (3-11) BUN (7-18) mg/dl Creatinine (0.6-1.4) mg/dl Est Cr Clr Drug Dosing ml/min Est GFR ( Amer) Est GFR (Non-Af Amer) BUN/Creatinine Ratio (10-20) Glucose (70-99) mg/dl POC Glucose 148 H 185 H 131 H (70-99) Calcium (8.5-10.1) mg/dl Pleural Cholesterol mg/dL 02/03/19 02/03/19 02/02/19 Range/Units 06:37 06:37 20:45 WBC 4.43 L (4.8-10.8) K/uL RBC 2.28 L (4.7-6.1) M/uL Hgb 7.4 L (14.0-18.0) g/dL Hct 21.1 L (42-52) % MCV 92.5 (80-100) fL MCH 32.5 (25-34) pg MCHC 35.1 (32-36) g/dL RDW Std Deviation 48.1 H (36.4-46.3) fL RDW Coeff of Fabián 14.4 (11.5-14.5) % Plt Count 180 (130-400) K/uL MPV 9.3 (7.4-10.4) fL Immature Gran % (Auto) 0.0 % Neut % (Auto) 67.3 % Lymph % (Auto) 18.7 % Canadian % (Auto) 11.7 % Eos % (Auto) 2.3 % Baso % (Auto) 0.0 % Immature Gran # (Auto) 0.00 (0.00-0.02) K/uL Neut # (Auto) 2.98 (1.4-6.5) K/uL Lymph # (Auto) 0.83 L (1.2-3.4) K/uL Canadian # (Auto) 0.52 (0.11-0.59) K/uL Eos # (Auto) 0.10 (0-0.5) K/uL Baso # (Auto) 0.00 (0-0.2) K/uL RBC Morphology Unremarkable Sodium 137 (136-145) mmol/L Potassium 4.4 (3.5-5.1) mmol/L Chloride 105 (98-107) mmol/L Carbon Dioxide 26 (21-32) mmol/L Anion Gap 6.0 (3-11) BUN 51 H (7-18) mg/dl Creatinine 2.67 H D (0.6-1.4) mg/dl Est Cr Clr Drug Dosing 18.5 ml/min Est GFR ( Amer) 24.7 Est GFR (Non-Af Amer) 21.3 BUN/Creatinine Ratio 19.1 (10-20) Glucose 113 H (70-99) mg/dl POC Glucose 290 H (70-99) Calcium 7.9 L (8.5-10.1) mg/dl Pleural Cholesterol mg/dL 02/01/19 Range/Units 07:41 WBC (4.8-10.8) K/uL RBC (4.7-6.1) M/uL Hgb (14.0-18.0) g/dL Hct (42-52) % MCV (80-100) fL MCH (25-34) pg MCHC (32-36) g/dL RDW Std Deviation (36.4-46.3) fL RDW Coeff of Fabián (11.5-14.5) % Plt Count (130-400) K/uL MPV (7.4-10.4) fL Immature Gran % (Auto) % Neut % (Auto) % Lymph % (Auto) % Canadian % (Auto) % Eos % (Auto) % Baso % (Auto) % Immature Gran # (Auto) (0.00-0.02) K/uL Neut # (Auto) (1.4-6.5) K/uL Lymph # (Auto) (1.2-3.4) K/uL Canadian # (Auto) (0.11-0.59) K/uL Eos # (Auto) (0-0.5) K/uL Baso # (Auto) (0-0.2) K/uL RBC Morphology Sodium (136-145) mmol/L Potassium (3.5-5.1) mmol/L Chloride (98-107) mmol/L Carbon Dioxide (21-32) mmol/L Anion Gap (3-11) BUN (7-18) mg/dl Creatinine (0.6-1.4) mg/dl Est Cr Clr Drug Dosing ml/min Est GFR ( Amer) Est GFR (Non-Af Amer) BUN/Creatinine Ratio (10-20) Glucose (70-99) mg/dl POC Glucose (70-99) Calcium (8.5-10.1) mg/dl Pleural Cholesterol 19 mg/dL Medications Administered Current Inpatient Medications Acetaminophen (Tylenol) 650 mg PO Q4H PRN PRN Reason: Pain or Fever Stop: 02/28/19 12:02 Last Admin: 02/01/19 09:49 Dose: 650 mg Documented by: Al Hydrox/Mg Hydrox/Simethicone (Maalox) 15 ml PO Q4H PRN PRN Reason: Dyspepsia Stop: 02/28/19 12:02 Aspirin (Ecotrin Ectab) 81 mg PO QAM ON LICENSE OF [facility] Stop: 03/01/19 08:59 Last Admin: 02/03/19 08:27 Dose: 81 mg Documented by: Atorvastatin Calcium (Lipitor) 20 mg PO QAM ON LICENSE OF [facility] Stop: 03/04/19 08:59 Last Admin: 02/03/19 08:27 Dose: 20 mg Documented by: Bumetanide (Bumex) 2 mg PO QAM ON LICENSE OF [facility] Stop: 03/03/19 08:59 Last Admin: 02/01/19 09:50 Dose: 2 mg Documented by: Carvedilol (Coreg) 6.25 mg PO BID ON LICENSE OF [facility] Stop: 03/03/19 08:59 Last Admin: 02/01/19 09:47 Dose: 6.25 mg Documented by: Citalopram Hydrobromide (Celexa) 20 mg PO DAILY ON LICENSE OF [facility] Stop: 03/01/19 08:59 Last Admin: 02/03/19 08:28 Dose: 20 mg Documented by: Dextrose (Dextrose 50%) 25 - 50 ml IV UD PRN; Protocol PRN Reason: Hypoglycemia Protocol Stop: 03/04/19 18:14 Glucagon (Glucagen) 1 mg IM UD PRN; Protocol PRN Reason: Hypoglycemia Protocol Stop: 03/04/19 18:14 Glucose (Glucose 40%) 15 - 30 gm PO UD PRN; Protocol PRN Reason: Hypoglycemia Protocol Stop: 03/04/19 18:14 Glucose (Dex4 Glucose) 4 - 8 tabs PO UD PRN; Protocol PRN Reason: Hypoglycemia Protocol Stop: 03/04/19 18:14 Heparin Sodium (Porcine) (Heparin Sodium (Porcine)) 5,000 units SQ Q12 SOPHY Stop: 03/04/19 20:59 Last Admin: 02/03/19 08:22 Dose: 5,000 units Documented by: Hydromorphone HCl (Dilaudid) 0.25 mg IV Q15M PRN PRN Reason: Pain Stop: 02/12/19 08:26 Last Admin: 01/29/19 08:46 Dose: 0.25 mg Documented by: Insulin Aspart (Novolog Flexpen) 0 units SC ACHS ON LICENSE OF [facility] Stop: 02/28/19 12:02 Last Admin: 02/03/19 17:39 Dose: 4 units Documented by: Lidocaine (Lidoderm 5%) 1 patch TD QAM ON LICENSE OF [facility] Stop: 03/03/19 11:29 Last Admin: 02/03/19 08:31 Dose: 1 patch Documented by: Metoprolol Tartrate (Lopressor) 12.5 mg PO BID ON LICENSE OF [facility] Stop: 02/28/19 11:14 Last Admin: 02/03/19 08:26 Dose: 12.5 mg Documented by: Miscellaneous (Remove Lidoderm Patch) 1 ea N/A DAILY@2100 ON LICENSE OF [facility] Stop: 03/03/19 20:59 Last Admin: 02/02/19 21:24 Dose: Not Given Documented by: Miscellaneous (Carbohydrates For Hypoglycemia) 15 - 30 gm PO UD PRN PRN Reason: Hypoglycemia Treatment Stop: 03/04/19 18:14 Multi-Ingredient Cream (Hydrocerin) 1 appln EXT QID ON LICENSE OF [facility] Stop: 03/05/19 12:59 Last Admin: 02/03/19 17:39 Dose: 1 appln Documented by: Nitroglycerin (Nitrostat) 0.4 mg SL UD PRN PRN Reason: Chest Pain Stop: 02/28/19 12:02 Ondansetron HCl (Zofran) 4 mg IV Q6H PRN PRN Reason: Nausea Stop: 02/28/19 12:02 Oxycodone HCl (Roxicodone Immediate Rel) 5 mg PO Q4H PRN PRN Reason: pain Stop: 02/12/19 12:02 Last Admin: 02/01/19 10:34 Dose: 5 mg Documented by: Potassium Chloride (Klor-Con M10) 10 meq PO BID ON LICENSE OF [facility] Stop: 03/02/19 08:59 Last Admin: 02/03/19 08:28 Dose: 10 meq Documented by: Resident Activity Tracking Resident Involvement: Resident Care Provided Care Provided: Adult Hospital Medicine (1) CHF (congestive heart failure) Heart failure chronicity: unspecified Heart failure type: unspecified Qualified Code(s): I50.9 - Heart failure, unspecified
--- NOTE | 2019-02-03 14:25 | Cardiology Progress Note ---
Date of Service February 03, 2019 Assessment & Plan (1) CHF (congestive heart failure): Patient appears comfortable and is clinically and hemodynamically stable. Euvolemic on exam without need for diuretics at this time. Would recommend sliding scale diuretic use upon discharge (e.g., bumetanide 2 mg p.o. p.r.n. weight gain greater than or equal to 3 pounds). Renal function improving. Favorable hemodynamics on low-dose metoprolol, no additional vaso active agents needed at this time. Consider low-dose ARB as outpatient. No role for Entresto given his degree of renal dysfunction. Given the absence of ongoing cardiac issues, cardiology will sign off, please contact if there is any change in his clinical status. I would be glad to see him as an outpatient to follow him from a cardiology perspective. (2) Acute [place] anterior wall first episode care: Given the patient's significant underlying renal disease, in the absence of evidence for an acute event with active ischemia would avoid cardiac catheterization due to the risk of contrast nephropathy resulting in acute renal failure/need for dialysis. He has not had any ischemic symptoms, would not need to perform stress study at this time, since the outcome would not exchange consultant (catheterization with revascularization only for lifestyle limiting ischemic symptoms, which she has not had). Although his LDL is excellent (73), agree with initiating atorvastatin. Continue aspirin, will not add additional anti-platelet agent at this time (unexplained anemia). (3) Acute respiratory failure with hypoxemia: Resolved. Secondary to congestive heart failure from apparent subacute anteroapical infarct. (4) Pleural effusion: Secondary to CHF. Thoracentesis performed 02/[address] Cintron (5) Type 2 DM with CKD and hypertension: (6) Acute on chronic anemia: No evidence of ongoing bleeding, may be related to his renal dysfunction. If he does receive a transfusion, would give concurrent diuretic to avoid volume overload. Likely will benefit from erythropoietin as outpatient to manage chronic anemia. Subjective 83-year-old man admitted 01/29/2019 with subacute congestive heart failure symptoms, found on echo to have a large area of anteroapical akinesis and an EF of 20-25 %. Uneventful night. He looks more comfortable currently been at any other point during this hospitalization. Apparently, his Hannah catheter will be removed soon. He no longer requires supplemental oxygen. He denies any chest pain, dyspnea at rest, palpitations, or lightheadedness. No complaints currently Review of Systems Constitutional: no fever and no chills Respiratory: as per Subjective / HPI Cardiovascular: as per Subjective / HPI Neurologic: no localized weakness Physical Exam Physical Exam: No distress, appears comfortable. Skin: No unusual lesions or ecchymosis. HEENT: Unremarkable. Neck: Jugular venous pulse at the clavicle at 90�, no carotid bruits. Lungs: Minor dullness at both bases, no crackles or wheezing. No accessory muscle use. Cardiac: Regular rhythm with 2/6 right upper sternal border systolic ejection murmur into the carotids and left sternal border/apex, aortic closure sound minimally reduced. No diastolic murmur or distinct gallop. Abdomen: Benign. Extremities: Nontender with no edema. Intact peripheral pulses. Neurologic: Unremarkable affect, nonfocal Results & Data Vital Signs (Past 12 Hours) Vital Signs Temp Pulse Pulse Pulse Resp BP BP 02/03/19 11:16 36.7 C 66 14 104/56 L 02/03/19 07:35 73 02/03/19 07:09 36.5 C 75 18 110/60 02/03/19 03:44 36.7 C 88 20 114/65 Pulse Ox 02/03/19 11:16 98 02/03/19 07:35 02/03/19 07:09 98 02/03/19 03:44 95 Laboratory Results Laboratory Tests 02/02/19 02/03/19 02/03/19 05:59 06:37 06:37 Hgb 7.4 L BUN 50 H 51 H Creatinine 3.02 H 2.67 H D (1) CHF (congestive heart failure) Heart failure chronicity: unspecified Heart failure type: unspecified Qualified Code(s): I50.9 - Heart failure, unspecified
--- NOTE | 2019-02-03 16:01 | Progress Note ---
DATE: 02/03/2019 Mr. Gutierrez was seen today and actually looks quite good. He is complaining of very mild pain along the right, but he is on room air now and states his breathing is better. He does have decreased breath sounds on the right and left base but a bit worse on the right. He has also reaccumulated some fluid, although not to the degree before the tap. He and his are both pleased with how much better he feels. We will continue to follow along with him, and if he is still here in the next 2 days, we will repeat an x-ray. If not, I will be glad to see him in the office in a week with an x-ray.
[2019-02-04 06:33] LABS: Basophils # (auto) 0.01 K/uL (0-0.2); Basophils % (auto) 0.2 %; Eosinophils # (auto) 0.22 K/uL (0-0.5); Eosinophils % (auto) 4.9 %; Hemoglobin 7.5 g/dL (14.0-18.0); Immature Granulocytes # (auto) 0.01 K/uL (0.00-0.02); Immature Granulocytes % (auto) 0.2 %; Lymphocytes # (auto) 1.14 K/uL (1.2-3.4); Lymphocytes % (auto) 25.6 %; Mean Corpuscular Hgb Conc 34.1 g/dL (32-36); Mean Corpuscular Volume 92.8 fL (80-100); Mean Platelet Volume 9.1 fL (7.4-10.4); Monocytes # (auto) 0.48 K/uL (0.11-0.59); Monocytes % (auto) 10.8 %; Neutrophils % (auto) 58.3 %; Platelet Count 186 K/uL (130-400); RDW Coefficient of Variation 14.5 % (11.5-14.5); RDW Standard Deviation 48.5 fL (36.4-46.3); Red Blood Count 2.37 M/uL (4.7-6.1); White Blood Count 4.46 K/uL (4.8-10.8)
[2019-02-04 07:03] LABS: BUN Creatinine Ratio 19.4 (10-20); Calcium 8.2 mg/dl (8.5-10.1); Creatinine Clr Calc Pharmacy 19.6 ml/min; Est GFR (African American) 25.8; Est GFR (Non-African American) 22.3; Potassium 4.3 mmol/L (3.5-5.1)
[2019-02-04 07:04] LABS: RBC Morphology Unremarkable
[2019-02-04] MEDS: INSULIN ASPART 100 UNITS/ML 3 ML PEN SC SCH ×2 (08:18→11:59)
[2019-02-04] MEDS: EUCERIN CR 120 GM JAR EXT SCH ×2 (08:20→12:01)
[2019-02-04] MEDS: CITALOPRAM 20 MG TAB PO SCH (08:20)
[2019-02-04] MEDS: ASPIRIN 81 MG ECTAB PO SCH (08:20)
[2019-02-04] MEDS: ATORVASTATIN 20 MG TAB PO SCH (08:20)
[2019-02-04] MEDS: METOPROLOL TARTRATE 25 MG TAB PO SCH (08:20)
[2019-02-04] MEDS: LIDOCAINE 5% 1 PATCH TD SCH ×2 (08:21→08:32)
[2019-02-04] MEDS: POTASSIUM CHLORIDE 10 MEQ TABCR PO SCH (08:21)
[2019-02-04] MEDS: HEPARIN SOD 5,000 UNIT/0.5 ML VIAL SQ SCH (08:21)
--- NOTE | 2019-02-04 13:10 | Discharge Summary ---
Date of Service February 04, 2019 Admission HPI Per Admitting Provider 83-year-old male who presents with a several day history of worsening shortness of breath and wheezing. He has a nonproductive cough. Interestingly, he denies chest discomfort back pain or diaphoresis. He is diabetic and his presentation may be altered. Chest CT scan was done on admission due to a recent fall and rib fracture. He has evidence of congestive heart failure with bilateral pleural effusions and is hypoxic on room air. Troponin is also elevated at 0.299 and EKG reveals evidence of recent anterior wall injury as compared to previous EKGs. He is a DNR patient and has chronic kidney kidney disease with creatinine 2.0. The ED physician contacted cardiology who recommended initiation of heparin infusion which has been started. Nifedipine will be discontinued and metoprolol tartrate will be increased to twice daily dosing. Hannah catheter has been placed and IV Lasix has been administered. The ED physician already contacted thoracic surgery, Dr. Cintron, who will be consulted but I do not think this is a parapneumonic effusion and the patient does not appear to be ill enough to have an empyema. I do not believe thoracentesis is necessary at this point. Hopefully the pleural effusions will subside with diuresis. Cardiac echo has been ordered. Family is at the bedside and is aware of the situation. He does have acute hypoxic respiratory failure at this point. ABGs are pending. BNP is 17,800. Admission Exam Per Admitting Provider Constitutional: WD/WN, vitals as above average body habitus; no acute distress and not ill appearing Eyes: PERRL, conjunctivae normal, anicteric sclerae ENMT: external ear and nose normal, oropharynx normal Neck: trachea midline, no thyromegaly Respiratory: normal respiratory effort and + cough; no retractions and does not use accessory muscles Midline rhonchi. Dullness at both bases. Bilateral and expiratory wheezes Cardiovascular: Rate/Rhythm: regular rhythm Heart Sounds: normal S1 and normal S2 Borderline tachycardia. Grade 2/6 harsh systolic murmur at the left sternal border Gastrointestinal (Abdomen): normal bowel sounds, soft, nontender, no hepatosplenomegaly Musculoskeletal: 1+ pitting edema bilateral lower extremities below the knees which the family states is unchanged and chronic. Skin: no rashes, warm and dry Neurologic: CN's II-XI intact bilaterally and moves all extremities; no focal motor deficits Principal Diagnosis Subacute myocardial infarction, acute respiratory failure with hypoxemia, hypotension, heart failure with reduced EF, acute on chronic anemia Discharge Exam General Appearance: Awake, alert & oriented, comfortable in general, NAD. CV: +S1S2 RRR, 3/6 systolic murmur. No JVD. Pulm: Mildly decreased breath sounds at bilateral bases. No present increased work of breathing. On room air. Abdomen: +BS, soft, non-tender, non-distended. Extremities: No pedal or musa edema. No calf tenderness. Some ecchymosis to left forearm. Neuro: No gross neuro deficits. Back: There is a diffuse mostly macular patchy rash over the upper back that is easily blanchable. No areas of generalized erythema, edema, drainage, pustules, or tenderness. Discharge Data Allergies Allergy/AdvReac Type Severity Reaction Status Date / Time BRITTANY Inhibitors AdvReac Mild Cough Verified 01/31/19 08:17 Consultations Thoracic surgery progress note on 03 Feb 2019 Mr. Gutierrez was seen today and actually looks quite good. He is complaining of very mild pain along the right, but he is on room air now and states his breathing is better. He does have decreased breath sounds on the right and left base but a bit worse on the right. He has also reaccumulated some fluid, although not to the degree before the tap. He and his are both pleased with how much better he feels. We will continue to follow along with him, and if he is still here in the next 2 days, we will repeat an x-ray. If not, I will be glad to see him in the office in a week with an x-ray. Cardiology progress note on 03 Feb 2019 (1) CHF (congestive heart failure): Patient appears comfortable and is clinically and hemodynamically stable. Euvolemic on exam without need for diuretics at this time. Would recommend sliding scale diuretic use upon discharge (e.g., bumetanide 2 mg p.o. p.r.n. weight gain greater than or equal to 3 pounds). Renal function improving. Favorable hemodynamics on low-dose metoprolol, no additional vaso active agents needed at this time. Consider low-dose ARB as outpatient. No role for Entresto given his degree of renal dysfunction. Given the absence of ongoing cardiac issues, cardiology will sign off, please contact if there is any change in his clinical status. I would be glad to see him as an outpatient to follow him from a cardiology perspective. (2) Acute CT anterior wall first episode care: Given the patient's significant underlying renal disease, in the absence of evidence for an acute event with active ischemia would avoid cardiac catheterization due to the risk of contrast nephropathy resulting in acute renal failure/need for dialysis. He has not had any ischemic symptoms, would not need to perform stress study at this time, since the outcome would not waste management specialist (catheterization with revascularization only for lifestyle limiting ischemic symptoms, which she has not had). Although his LDL is excellent (73), agree with initiating atorvastatin. Continue aspirin, will not add additional anti-platelet agent at this time (unexplained anemia). (3) Acute respiratory failure with hypoxemia: Resolved. Secondary to congestive heart failure from apparent subacute anteroapical infarct. (4) Pleural effusion: Secondary to CHF. Thoracentesis performed 02/[address] Cintron (5) Type 2 DM with CKD and hypertension: (6) Acute on chronic anemia: No evidence of ongoing bleeding, may be related to his renal dysfunction. If he does receive a transfusion, would give concurrent diuretic to avoid volume overload. Likely will benefit from erythropoietin as outpatient to manage chronic anemia. Procedures Performed Transthoracic echocardiogram performed on 29 Jan 2019 See full report. In brief: - Left ventricle is normal in size. There is normal left ventricular wall thickness. - Left ventricular systolic function is moderately reduced. Ejection fraction equals 30-35%. - Large area of anterior apical akinesis. Basal lawton move well. - Mild valvular aortic stenosis, trace aortic regurgitation. - There is moderate mitral annular calcification. There is moderate mitral regurgitation. There is moderate tricuspid regurgitation. - Right ventricular systolic pressure is elevated at 40-[address] chest without contrast on 29 Jan 2019 FINDINGS: Large bilateral pleural effusions. Prominent pulmonary vasculature consistent with congestive heart failure. Atherosclerotic change thoracic aorta. IMPRESSION: 1. Large bilateral pleural effusions. 2. Congestive heart failure. Single view chest x-ray portable on 02 Feb 2019 - FINDINGS: The heart remains enlarged. There are persistent bilateral pleural effusions. There is radiographic evidence of congestive failure/fluid overload. There are basilar airspace opacities, likely secondary to compressive atelectasis.[ - IMPRESSION: Cardiomegaly, radiographic evidence of mild congestive failure/fluid overload, and persistent bilateral pleural effusions with associated basilar opacities Hospital Course (1) Myocardial infarction: 83-year-old male was admitted on 29 Jan 2019 for several days of SOB and a recent fall with left-sided chest pain from left 8th rib fracture. Myocardial infarction: See related cardiology notes. Thought to be subacute (so off heparin) in setting of CHF. Avoiding cardiac cath due to risk of contrast nephropathy. TnI trended down. - Held home nifedipine. - Medically managed with aspirin, Lasix/bumex prn, metoprolol (increased to twice daily), and atorvastatin. - Has allergy to BRITTANY-I (cough). Consider ARB in near future. - Consider dobutamine stress echo for further cardiac evaluation based on symptoms going forward, though may not be acutely warranted. Acute respiratory failure with hypoxemia, Bilateral pleural effusions: Secondary to congestive heart failure and CT. 28May s/p right thoracentesis of 1600 mL but some re-accumulation on repeat pCXR. 28May pleural culture NGTD. On lidocaine patch for right chest discomfort. Presently on room air. - Thoracic surgery recommend seeing him in their office in 1 week after discharge with an x-ray. Hypotension: On 28May with SBP into 70�s, likely multifactorial (in the setting of thoracentesis that am, continued diuresis, addition of coreg, a dose of oxycodone, and a large BM shortly prior (e.g. vagal activity)). Heart failure with reduced EF: Admit BNP 17K. 25May TTE noted EF 30 to 35%, large area of anterior apical akinesis, pulmonary hypertension, and various valve disease (see full report). Held his diuretics again today (30May). - Will need variable diuretic dosing going forwards based on symptoms, weight, and (when possible) physical exam. E.g., bumetanide 2 mg p.o. prn acute weight gain >= 3 pounds over dry weight. - Recommend daily weights for near future, assuming he will need a dose of diuretic in next couple of days. - Recommend strict < 1500 mg of dietary sodium restriction. - Recommend BMP q 48-72 hours for next week. CKD stage III: Baseline Cr perhaps 1.9. Max 3.35, with waxing/waning likely related to overall volume status. Monitoring. Acute on chronic anemia: Baseline perhaps Hb 12�s. Did have thoracentesis on 28May, though do not suspect intra-thoracic bleed. See thoracic surgery notes. Hb in past 72 hours has ranged between 7.4 to 8.0. - Recommend CBC q 48-72 hours for next week. Abnormal urinalysis: Admit UA was dirty. Urine culture showed no growth. Was briefly on ceftriaxone. Malnutrition risk: Has had some decreased PO intake during this hospitalization. Albumin is borderline low. On boost/ensure supplementation with meals. Dermatitis: 30May noted a likely mild dermatitis rash on his back due to his increased time lying supine recently. Does not appear cellulitic or overtly allergic. Started Eucerin. Consider topical steroids as needed. Ongoing medical issues: - Hypertension, hyperlipidemia: See CT medications as above. - Diabetes type 2: At home is diet controlled. [id number] HbA1c was 6.2. As inpatient was on an insulin sliding scale. - Prostate cancer: Reportedly in remission. 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 No noted incontinence here, however. Since last colonoscopy was in his 70�s, unknown results but was told he �didn�t need another� and that he had hemorrhoids. - Depression, dementia: On Celexa. - PMH CVA, gait disorder, frequent falls. Code status: DNR. Diet: Heart healthy, carb count, low sodium < 1500 mg. Recommend consider Boost/Ensure with meals. (2) Acute respiratory failure with hypoxemia: (3) Pleural effusion: (4) Hypotension: (5) CHF (congestive heart failure): (6) CKD (chronic kidney disease) stage 3, GFR 30-59 ml/min: (7) Acute on chronic anemia: (8) Hypertension: (9) Hyperlipidemia: (10) DM2 (diabetes mellitus, type 2): (11) History of prostate cancer: (12) Stool incontinence: (13) Depression: (14) Dementia: (15) History of CVA (cerebrovascular accident): (16) Gait disorder: (17) Frequent falls: (18) Dermatitis: Total Time Total Time Spent Total Time Spent (In Minutes): < 30 min Discharge Plan Discharge Items Patient Disposition: Transfer Inpatient Rehab Fac Reason For Visit: SOB Discharge Diagnosis: Myocardial infarction, acute respiratory failure with hypoxemia, heart failure with reduced EF, acute on chronic anemia, dermatitis Discharge Goals: Increase independence Activity: Per 'Additional Instructions' section Non-emergency contact: Primary Care Provider and Wafer Polisher Call non-emergency contact if: you have any medication questions Follow-up/Referrals: Rk Perera III, MD [Primary Care Provider] - Diet: Carb Consistent or DM2 and Heart Healthy Diet Comment: Low-sodium, less than 1500 mg/day. Boost with meals. Addtl Provider Instructions: You were admitted to the hospital on January 29, 2019 due to shortness of breath. While in the hospital we evaluated the following issues: Heart attack: You were thought to have had a heart attack sometime in the past few days before admission. You were seen by cardiology as well as the hospitalist group for management of this. - For now, you will continue to be managed by [facility] during your acute rehab. - Once discharged from there, please follow-up with your primary care provider as well as cardiology (Dr. Razo) for ongoing care. Breathing difficulties, pleural effusions: Your breathing difficulty was related to your congestive heart failure, a condition where your heart does not probably pump blood/fluid around the body. Because of this, fluid can build up both in your legs and in your lungs (which is called a pleural effusion). You were seen by the thoracic surgery service who drained some of that fluid off of your lungs. - Thoracic surgery recommends seeing you one week after your hospital discharge date for further evaluation. Please get a chest x-ray within one day of this visit. - Consider the purchase of a portable pulse oximetry monitor, for example one that just sits on the finger. While this is not a complete way of monitoring breathing difficulty, if you notice that the oxygen percentage is persistently 92% or lower you should contact your doctor. Regardless of the percentage on the pulse oximeter, if you are not having any chest pain or difficulty breathing you should be seen in the emergency department as soon as possible. Heart failure: Evaluation in the hospital included an ultrasound of your heart which showed some limited heart function. This is contributing to many of your symptoms and is likely the result of your heart attack. - You are being transferred to [facility] for acute rehabilitation for this. - Going forwards, as we discussed, one of the best things you can do is monitor your salt intake. It is very important that you take in less than 1500 mg of salt per day. The best way of doing this is to keep ongoing daily records, such as in a small notebook you can carry around. Many foods labels have the salt content listed on them. It is quite easy to exceed this number, therefore it is very important that you keep track closely. Going over 1500 mg of salt per day significantly increases the chances of developing more fluid in your lungs and causing difficulty breathing that is not easily treated. Anemia: During your hospital stay are noted to have low red blood cell counts that carry around oxygen. This will be monitored over the next few days at [facility]. After this you should follow-up with your primary care provider to make sure that these levels are increasing. Skin rash: As we discussed, you have a mild dermatitis in your back that should continue to improve with local Eucerin cream. You could consider the addition of a low-dose steroid cream such as hydrocortisone if it helps with itching. While in the hospital, we addressed some other issues including your more chronic medical history. This monitoring will continue while you are [facility]. Overall, it is very important that you follow their medical staff's instructions and ask questions along the way during your rehabilitation. It is very important that you follow-up with cardiology, thoracic surgery, and your primary care provider as discussed above. Prescriptions: New atorvastatin 20 mg Tablet 20 mg PO QAM 30 Days Qty: 30 RF: 0 aspirin [Ecotrin Low Strength] 81 mg Tablet,Delayed Release (Dr/Ec) 81 mg PO QAM 30 Days Qty: 30 RF: 0 Dermacerin Cream 1 applic EXT QID 14 Days Qty: 100 RF: 0 potassium chloride [Klor-Con M10] 10 mEq Tablet,Er Particles/Crystals 10 meq PO BID 30 Days Qty: 60 RF: 0 metoprolol tartrate 25 mg Tablet 12.5 mg PO BID 30 Days Qty: 30 RF: 0 bumetanide 2 mg tablet 2 mg PO DAILY PRN (Reason: edema) Qty: 30 RF: 0 Continued citalopram 20 mg tablet 20 mg PO DAILY RF: 0 oxycodone 5 mg tablet 5 mg PO Q4H PRN (Reason: pain) Qty: 15 RF: 0 Discontinued triamcinolone acetonide 0.1 % lotion 1 appln topical TID Qty: 1 RF: 0 nifedipine 60 mg tablet extended release 60 mg PO DAILY RF: 0 metoprolol tartrate 25 mg tablet 12.5 mg PO DAILY RF: 0 Stand-Alone Forms: My [facility]/Other Patient Handouts: Percutaneous Dx Chest Lung Probs, Hyperglycemia, Hypoglycemia, Blood Sugar Check, Diabetes Meal Planning Discharge Orders: Discharge Order (Routine); Ordered 02/04/19 Ordered By: Anival Genao Skilled Items Patient informed of condition?: Yes DNR: Yes Discharge Level of Care: Acute rehab Communicable Disease: No Discharge Prognosis: Improving Admission Data Admit Date/Time: 01/29/19 11:07 Attending Provider: J Carlos Domingo Admit Provider: Julio Cesar Lemus Primary Care Provider: Rk Perera III Other Providers: Jt Cintron ; Aguilar Razo ; Julio Cesar Lemus ; Mary Cortes Service: Telemetry Other Interventions: Discharge Summary Assessment (RN) Last Done: 02/04/19 13:16 DC Date/Time DO NOT enter until pt leaves facility: 02/04/19 14:04 Supervising Physician Co-Signing Physician Notes I personally examined the patient and verified all reyes points of history and exam, discussed case, and agree with decision making with Dr Genao. Looking good feeling good. Breathing well. Ready to go to rehab. Vitals noted, in general he is awake and alert pleasant no distress. HEENT normocephalic atraumatic mucous membranes moist. Breathing unlabored no accessory muscle use good effort. No new focal neuro deficits. Acute systolic CHF�improving. Still appearing euvolemic, Continue to follow off of diuretics for now. Discussed with patient and he will likely need an ongoing dose of diuretic but right now it will need to be dynamic based on his fluid status day to day. This will likely go on throughout his rehab stay, but by the time he is ready to get home from rehab likely we will be able to have a reasonable daily fluid plan with escalation for gaining weight. Discussed with that the plan will likely be daily weight plus any respiratory symptoms plus or minus pulse ox with the plan of extra diuretics for weight gain, extra diuretics plus calling for advice if weight gain with any respiratory symptoms, and coming to the hospital if weight gain respiratory symptoms and low pulse ox. Coronary artery disease�CT prior to admission. Med management secondary risk reduction ongoing. No cath warranted due to risk of contrast nephropathy and stable symptoms. Likely would benefit from a stress echo once he is more stable and recovered overall to look for any signs of reversible ischemia. Elevated creatinine�uncertain if this is a new baseline if it acute kidney injury superimposed on a baseline of stage III CKD. Continue to follow basic metabolic panel periodically. DVT prophylaxis�Cautiously utilizing subcu heparin, Follow hemoglobin as outpatient Anemia�No signs or symptoms of blood loss, continue to follow. Resident Activity Tracking Resident Involvement: Resident Care Provided Care Provided: Adult Hospital Medicine
== END 2019-02-04 14:04 ==
LOC: ED 08:07 → 2E 11:07 → SUATTDRO 11:07 → 2E 11:45